=== PATIENT | male | born 1985 | race American Indian/Alaskan Native ===

== ENCOUNTER 2017-01-18 08:50 | Emergency (ER) | payer SELFPAY ==
[2017-01-18 09:01] VITALS: BP 139/98
--- NOTE | 2017-01-18 11:24 | XRay Report ---
X-RAY RIGHT FOOT THREE VIEWS: 01/18/17 09:04:00 CLINICAL: Pain. FINDINGS: Moderate soft tissue swelling of the midfoot. No soft tissue air or foreign body. The ankle joint and bones of the hindfoot are grossly abnormal on the lateral view. No fracture line is identified. IMPRESSION: Nonspecific soft tissue swelling. Grossly abnormal ankle joint and hindfoot. Consider ankle x-rays for further evaluation.
--- NOTE | 2017-01-18 11:34 | Emergency Department Report ---
ED Lower Extremity HPI - General Chief Complaint: Extremity Injury, Lower Stated Complaint: RIGHT FOOT PAIN Time Seen by Provider: 01/18/17 11:14 Source: patient Mode of arrival: Ambulatory Limitations: No Limitations - History of Present Illness -: Sudden Injury: Foot: Right Place: home Severity: moderate Improves With: nothing Worsens With: weight bearing Treatments Prior to Arrival: other (NO TRAUMA KNOWN. A R FOOT PAIN. WORSE OVER NIGHT) - Related Data Previous Rx's Medication Instructions Recorded Last Taken Type Colchicine [Colcrys] 0.6 mg PO DAILY #10 tablet 01/18/17 Unknown Rx predniSONE [Deltasone] 20 mg PO DAILY #5 tablet 01/18/17 Unknown Rx traMADol [Ultram] 50 mg PO Q6HR PRN #12 tablet 01/18/17 Unknown Rx Allergies Allergy/AdvReac Type Severity Reaction Status Date / Time No Known Allergies Allergy Unverified 01/18/17 08:58 ED Review of Systems ROS: Stated complaint: RIGHT FOOT PAIN Other details as noted in HPI Comment: Unobtainable due to pts medical conditions Constitutional: no symptoms reported, see HPI. denies: chills Eyes: as per HPI. denies: eye pain ENT: as per HPI. denies: ear pain, throat pain Respiratory: no symptoms reported, see HPI. denies: cough, orthopnea Cardiovascular: as per HPI. denies: chest pain, palpitations, dyspnea on exertion, orthopnea Endocrine: no symptoms reported, see HPI. denies: excessive sweating, flushing , intolerance to cold, intolerance to heat Gastrointestinal: as per HPI. denies: abdominal pain, nausea, vomiting Genitourinary: as per HPI. denies: urgency, dysuria Musculoskeletal: as per HPI, other (R FOOT PAIN R LATERAL FOOT) Skin: as per HPI. denies: rash, lesions Neurological: as per HPI. denies: headache, weakness Psychiatric: as per HPI. denies: anxiety, depression Hematological/Lymphatic: as per HPI. denies: easy bleeding ED Past Medical Hx - Past Medical History Previous Medical History?: No - Surgical History Past Surgical History?: No - Social History Smoking Status: Never Smoker Substance Use Type: None - Medications Home Medications: Home Medications Medication Instructions Recorded Confirmed Last Taken Type Colchicine [Colcrys] 0.6 mg PO DAILY #10 tablet 01/18/17 Unknown Rx predniSONE [Deltasone] 20 mg PO DAILY #5 tablet 01/18/17 Unknown Rx traMADol [Ultram] 50 mg PO Q6HR PRN #12 tablet 01/18/17 Unknown Rx ED Physical Exam - General Limitations: No Limitations General appearance: alert - Head Head exam: Present: atraumatic - Eye Eye exam: Present: PERRL - ENT ENT exam: Present: mucous membranes moist - Neck Neck exam: Present: normal inspection - Respiratory Respiratory exam: Present: normal lung sounds bilaterally - Cardiovascular Cardiovascular Exam: Present: regular rate - GI/Abdominal GI/Abdominal exam: Present: soft - Rectal Rectal exam: Present: deferred - Extremities Exam Extremities exam: Present: normal inspection, full ROM, tenderness (R FOOT) - Back Exam Back exam: Present: normal inspection, full ROM - Neurological Exam Neurological exam: Present: alert, oriented X3, CN II-XII intact, normal gait - Psychiatric Psychiatric exam: Present: normal affect, normal mood - Skin Skin exam: Present: warm, dry, intact ED Course Vital Signs 01/18/17 08:58 Temperature 98.1 F Pulse Rate 73 Respiratory 20 Rate Blood Pressure 139/98 O2 Sat by Pulse 98 Oximetry - Reevaluation(s) Reevaluation #1: 01/18/17 12:17 TO ER W R FOOT PAIN- LATERAL FOOT NO TRAUMA NO MED HISTORY XRAY NEG LABS NOTED MEDICATED PT EDUCATED ON GOUT ED Lower Extremity MDM - Lab Data Result diagrams: 01/18/17 11:28 01/18/17 11:28 - Radiology Data Radiology results: report reviewed, image reviewed - Medical Decision Making SEE NOTE Critical care attestation.: If time is entered above; I have spent that time in minutes in the direct care of this critically ill patient, excluding procedure time. ED Disposition Clinical Impression: Gout Disposition: DC-01 TO HOME OR SELFCARE Is pt being admited?: No Does the pt Need Aspirin: No Condition: Stable Instructions: Acute Gouty Arthritis (ED) Additional Instructions: MODIFY DIET INSTRUCTED GOUT WILL RECUR WE ARE TREATING ACUTE ATTACK BUT YOU WILL NEED FOLLOW UP Referrals: PRIMARY CARE,MD [Primary Care Provider] - 3-5 Days BRANDO RICHMOND MD [Staff Physician] - 3-5 Days Time of Disposition: 12:16
[2017-01-18 11:51] LABS: Basophils % (Auto) 0.8 % (0.0-1.8); Eosinophils % (Auto) 0.6 % (0.0-4.3); Hematocrit 45.7 % (35.5-45.6); Hemoglobin 14.3 gm/dl (11.8-15.2); Mean Corpuscular HGB Conc 31 % (32-34); Mean Corpuscular Volume 82 fl (84-94); Platelet Count 177 K/mm3 (140-440); Red Blood Count 5.56 M/mm3 (3.65-5.03); Red Cell Distribution Width 14.6 % (13.2-15.2); White Blood Count 6.3 K/mm3 (4.5-11.0)
[2017-01-18 11:57] LABS: Mean Corpuscular Hemoglobin 26 pg (28-32)
[2017-01-18 11:59] LABS: Alanine Aminotransferase 49 units/L (7-56); Albumin 4.3 g/dL (3.9-5); Albumin/Globulin Ratio 1.2 %; Alkaline Phosphatase 51 units/L (35-129); Anion Gap 13 mmol/L; BUN/Creatinine Ratio 10; Blood Urea Nitrogen 8 mg/dL (9-20); Calcium 9.3 mg/dL (8.4-10.2); Carbon Dioxide 30 mmol/L (22-30); Chloride 100.8 mmol/L (98-107); Glucose 97 mg/dL (75-100); Potassium 4.2 mmol/L (3.6-5.0); Sodium 140 mmol/L (137-145); Total Protein 7.8 g/dL (6.3-8.2); Uric Acid 8.9 mg/dL (3.5-7.6)
[2017-01-18] MEDS ORDERED: DECADRON IM ONE (12:13)
[2017-01-18] MEDS ORDERED: NORCO 5/325 PO ONE (12:13)
[2017-01-18] MEDS ORDERED: COLCRYS PO ONE (12:30)
== END 2017-01-18 12:31 | disposition home or self-care (01) ==
LOC: ED 08:50
DX: M10.9 Gout, unspecified (principal)
CPT/HCPCS: 36415; 73630; 80053; 84550; 85025; 96372; 99284; J1100

== ENCOUNTER → 2017-07-19 04:01 | Emergency (ER) | payer SELFPAY | END | disposition left against medical advice (07) | LOC: ED 04:01 | DX: J02.9 Acute pharyngitis, unspecified (principal); Z53.21 Procedure and treatment not carried out due to patient leaving prior to being seen by health care provider ==

== ENCOUNTER 2017-07-24 01:01 | Emergency (ER) | payer SELFPAY ==
[2017-07-24 02:20] VITALS: BP 138/85
[2017-07-24 02:36] LABS: Basophils # (Auto) 0.1 K/mm3 (0.0-0.1); Basophils % (Auto) 0.6 % (0.0-1.8); Eosinophils # (Auto) 0.1 K/mm3 (0.0-0.4); Eosinophils % (Auto) 0.8 % (0.0-4.3); Hematocrit 44.4 % (35.5-45.6); Hemoglobin 14.7 gm/dl (11.8-15.2); Lymphocytes # (Auto) 3.5 K/mm3 (1.2-5.4); Lymphocytes % (Auto) 36.7 % (13.4-35.0); Mean Corpuscular HGB Conc 33 % (32-34); Mean Corpuscular Hemoglobin 26 pg (28-32); Mean Corpuscular Volume 80 fl (84-94); Monocytes # (Auto) 0.7 K/mm3 (0.0-0.8); Monocytes % (Auto) 6.9 % (0.0-7.3); Platelet Count 197 K/mm3 (140-440); Red Blood Count 5.56 M/mm3 (3.65-5.03); Red Cell Distribution Width 14.6 % (13.2-15.2)
[2017-07-24 02:48] LABS: Alanine Aminotransferase 28 units/L (7-56); Albumin 4.2 g/dL (3.9-5); BUN/Creatinine Ratio 10; Blood Urea Nitrogen 9 mg/dL (9-20); Calcium 8.8 mg/dL (8.4-10.2); Hemolysis Index 20
== END 2017-07-24 02:45 | disposition left against medical advice (07) ==
LOC: ED 01:01
DX: R07.0 Pain in throat (principal); Z53.21 Procedure and treatment not carried out due to patient leaving prior to being seen by health care provider
CPT/HCPCS: 36415; 80053; 85025; 87116; 87430

== ENCOUNTER 2018-01-13 12:31 | Emergency (ER) | payer SELFPAY ==
[2018-01-13] MEDS ORDERED: TORADOL IM ONE (14:18)
[2018-01-13] MEDS ORDERED: CATAPRES PO ONE (14:18)
--- NOTE | 2018-01-13 14:35 | Emergency Department Report ---
ED General Adult HPI - General Chief complaint: Headache Stated complaint: HEADACHE/DIZZY Time Seen by Provider: 01/13/18 14:09 Source: patient Mode of arrival: Ambulatory Limitations: No Limitations - History of Present Illness Initial comments: This 32-year-old [place] male who has been having off-and-on headaches for the past 3 months. Patient states that some days or much worse than others. . last 2 days have been particularly bad. Patient denies any photophobia and nausea vomiting cough or congestion or neck stiffness. Patient has not seen a physician in many years. Of note patient's blood pressure was elevated today and the patient states he is very noncompliant with a healthy diet. Patient also has gained about 60 pounds in the last 2 years. Patient describes the headache as aching throbbing sensation behind the eyes. - Related Data Previous Rx's Medication Instructions Recorded Last Taken Type Colchicine [Colcrys] 0.6 mg PO DAILY #10 tablet 01/18/17 Unknown Rx predniSONE [Deltasone] 20 mg PO DAILY #5 tablet 01/18/17 Unknown Rx traMADol [Ultram] 50 mg PO Q6HR PRN #12 tablet 01/18/17 Unknown Rx Amlodipine Besylate [Norvasc] 5 mg PO DAILY #30 tablet 01/13/18 Unknown Rx Ibuprofen [Motrin] 800 mg PO Q8HR PRN #14 tablet 01/13/18 Unknown Rx traMADol [Ultram] 50 mg PO Q6HR PRN #10 tablet 01/13/18 Unknown Rx Allergies Allergy/AdvReac Type Severity Reaction Status Date / Time No Known Allergies Allergy Unverified 01/18/17 08:58 ED Review of Systems ROS: Stated complaint: HEADACHE/DIZZY Other details as noted in HPI Comment: All other systems reviewed and negative ED Past Medical Hx - Past Medical History Previous Medical History?: No - Surgical History Past Surgical History?: No - Social History Smoking Status: Never Smoker Substance Use Type: None - Medications Home Medications: Home Medications Medication Instructions Recorded Confirmed Last Taken Type Colchicine [Colcrys] 0.6 mg PO DAILY #10 tablet 01/18/17 Unknown Rx predniSONE [Deltasone] 20 mg PO DAILY #5 tablet 01/18/17 Unknown Rx traMADol [Ultram] 50 mg PO Q6HR PRN #12 tablet 01/18/17 Unknown Rx Amlodipine Besylate [Norvasc] 5 mg PO DAILY #30 tablet 01/13/18 Unknown Rx Ibuprofen [Motrin] 800 mg PO Q8HR PRN #14 tablet 01/13/18 Unknown Rx traMADol [Ultram] 50 mg PO Q6HR PRN #10 tablet 01/13/18 Unknown Rx ED Physical Exam - General Limitations: No Limitations General appearance: alert, in no apparent distress - Head Head exam: Present: atraumatic, normocephalic - Eye Eye exam: Present: normal appearance, PERRL, EOMI - ENT ENT exam: Present: mucous membranes moist - Neck Neck exam: Present: normal inspection - Respiratory Respiratory exam: Present: normal lung sounds bilaterally. Absent: respiratory distress, wheezes, rales, rhonchi - Cardiovascular Cardiovascular Exam: Present: regular rate, normal rhythm, normal heart sounds. Absent: systolic murmur, diastolic murmur, rubs, gallop - GI/Abdominal GI/Abdominal exam: Present: soft, normal bowel sounds. Absent: distended, tenderness, guarding, rebound - Rectal Rectal exam: Present: deferred - Extremities Exam Extremities exam: Present: normal inspection - Back Exam Back exam: Present: normal inspection - Neurological Exam Neurological exam: Present: alert, oriented X3 - Psychiatric Psychiatric exam: Present: normal affect, normal mood - Skin Skin exam: Present: warm, dry, intact, normal color. Absent: rash ED Course Vital Signs 01/13/18 12:41 Temperature 97 F L Pulse Rate 93 H Respiratory 18 Rate Blood Pressure 156/99 O2 Sat by Pulse 97 Oximetry ED Medical Decision Making - EKG Data -: EKG Interpreted by Me EKG shows normal: sinus rhythm, axis, intervals, QRS complexes, ST-T waves Rate: normal - EKG Data Interpretation: normal EKG - Medical Decision Making Did certified credit counselor the patient regarding his diet and normal blood pressure readings. Patient will be started on Norvasc 5 mg and be discharged home. Critical care attestation.: If time is entered above; I have spent that time in minutes in the direct care of this critically ill patient, excluding procedure time. ED Disposition Clinical Impression: Hypertensive urgency Headache Qualifiers: Headache type: tension-type Headache chronicity pattern: acute headache Intractability: not intractable Qualified Code(s): G44.209 - Tension-type headache, unspecified, not intractable Disposition: DC-01 TO HOME OR SELFCARE Is pt being admited?: No Does the pt Need Aspirin: No Condition: Stable Instructions: Hypertension (ED) Referrals: DIEGO SMITH MD [Staff Physician] - 3-5 Days Time of Disposition: 14:35
[2018-01-13 15:05] VITALS: BP 122/77
== END 2018-01-13 15:04 | disposition home or self-care (01) ==
LOC: ED 12:31
DX: I16.0 Hypertensive urgency (principal); G44.209 Tension-type headache, unspecified, not intractable
CPT/HCPCS: 93005; 93010; 96372; 99282; J1885

== ENCOUNTER 2018-10-04 04:37 | Emergency (ER) | payer OTHER ==
[2018-10-04 05:20] VITALS: BP 141/90
--- NOTE | 2018-10-04 06:51 | Ultrasound Report ---
PROCEDURE: US TESTICULAR DOPPLER COMP TECHNIQUE: Testicular ultrasound utilizing grayscale, color and spectral Doppler technique HISTORY: Right testicle pain COMPARISONS: None FINDINGS: Grayscale, color and spectral Doppler ultrasound evaluation of the testicles The right testicle measures 5.1 x 2.8 x 3.2 cm and demonstrates normal echotexture and color and spec tral Doppler evaluation. The epididymis is within normal limits. No intra or extra testicular mass. The left testicle measures 5.2 x 2.4 x 3.3 cm and demonstrates normal echo texture and color and spec tral Doppler evaluation. The epididymis is within normal limits. No intra or extra testicular mass. Small bilateral hydrocele. No varicocele visualized. IMPRESSION: Unremarkable testicular ultrasound. This document is electronically signed by Dhiraj Tesfaye MD., October 04 2018 06:49:44 AM ET
--- NOTE | 2018-10-04 06:54 | Cat Scan Report ---
PROCEDURE: CT ABDOMEN PELVIS WO CON TECHNIQUE: Noncontrast CT of the abdomen and pelvis HISTORY: right flank pain COMPARISONS: Non- FINDINGS: Imaged intrathoracic contents are unremarkable. Kidneys are normal in size, axis and position. Very mild right hydroureteronephrosis without obstruct ing stone identified. No stones seen in the right or left collecting system or within the urinary faiza dder. Pelvic phleboliths are noted. No free fluid in the pelvis. Hepatic steatosis with sparing adjacent to the gallbladder. The liver, gallbladder, pancreas, spleen, and adrenal glands otherwise demonstrate an unremarkable noncontrast appearance. Hollow enteric organs are normal in course and caliber. Appendix is normal. No intra-abdominal free a ir/fluid or lymphadenopathy. Aorta is normal in course and caliber. Superficial soft tissues are unremarkable. No acute or aggressive appearing skeletal findings. IMPRESSION: Mild right hydroureteronephrosis may be due to recently passed stone or infection. No current obstruc tive uropathy identified. Hepatic steatosis. This document is electronically signed by Dhiraj Tesfaye MD., October 04 2018 06:53:07 AM ET
[2018-10-04 07:18] LABS: Basophils # (Auto) 0.2 K/mm3 (0.0-0.1); Basophils % (Auto) 2.8 % (0.0-1.8); Eosinophils # (Auto) 0.1 K/mm3 (0.0-0.4); Eosinophils % (Auto) 0.7 % (0.0-4.3); Hematocrit 41.9 % (35.5-45.6); Hemoglobin 13.6 gm/dl (11.8-15.2); Lymphocytes # (Auto) 1.8 K/mm3 (1.2-5.4); Lymphocytes % (Auto) 24.8 % (13.4-35.0); Mean Corpuscular HGB Conc 33 % (32-34); Mean Corpuscular Volume 81 fl (84-94); Monocytes # (Auto) 0.6 K/mm3 (0.0-0.8); Monocytes % (Auto) 7.9 % (0.0-7.3); Platelet Count 173 K/mm3 (140-440); Red Blood Count 5.16 M/mm3 (3.65-5.03)
[2018-10-04 07:29] LABS: Mucus,Urine FEW /HPF
[2018-10-04 07:34] LABS: Bilirubin,Urine NEG (Negative); Blood,Urine LG (Negative); Protein,Urine <15 mg/dL mg/dL (Negative); Urobilinogen,Urine < 2.0 mg/dL (<2.0)
[2018-10-04 07:35] LABS: Color,Urine YELLOW (Yellow); RBC,Urine > 182.0 /HPF (0.0-6.0)
[2018-10-04 07:38] LABS: Alanine Aminotransferase 26 units/L (7-56); Albumin 4.1 g/dL (3.9-5); BUN/Creatinine Ratio 11; Blood Urea Nitrogen 11 mg/dL (9-20); Calcium 8.9 mg/dL (8.4-10.2); Hemolysis Index 18
--- NOTE | 2018-10-04 08:07 | Emergency Department Report ---
ED Abdominal Pain HPI - General Chief Complaint: Abdominal Pain Stated Complaint: BACK/SIDE/TESTICLE PAIN Source: patient Mode of arrival: Ambulatory Limitations: No Limitations - History of Present Illness Initial Comments: This is a 32-year-old male who presents to the emergency room right flank pain radiating to right testicle that started last night. Patient currently reports pain is 7 out of 10 on pain scale radiating from right flank to right testicle. States he gets Tylenol 100 to arrival with minimal improvement of symptoms. He denies chills, urinary frequency, urgency, dysuria, penile discharge, testicular enlargement, nausea, vomiting, or diarrhea. MD Complaint: flank pain (right) -: Last night Location: R flank Radiation: other (right groin) Migration to: no migration Severity: moderate Severity scale (0 -10): 7 Quality: aching, sharp Consistency: intermittent Improves With: nothing Worsens With: nothing Associated Symptoms: denies other symptoms Treatments Prior to Arrival: NSAIDs - Related Data Previous Rx's Medication Instructions Recorded Last Taken Type Colchicine [Colcrys] 0.6 mg PO DAILY #10 tablet 01/18/17 Unknown Rx predniSONE [Deltasone] 20 mg PO DAILY #5 tablet 01/18/17 Unknown Rx traMADol [Ultram] 50 mg PO Q6HR PRN #12 tablet 01/18/17 Unknown Rx Amlodipine Besylate [Norvasc] 2.5 mg PO DAILY #30 tablet 01/13/18 Unknown Rx Ibuprofen [Motrin] 800 mg PO Q8HR PRN #14 tablet 01/13/18 Unknown Rx traMADol [Ultram] 50 mg PO Q6HR PRN #10 tablet 01/13/18 Unknown Rx Amoxicillin/Potassium Clav 1 each PO Q12H #20 tablet 08/13/18 Unknown Rx [Augmentin 875-125 Tablet] Benzonatate [Tessalon Perles] 100 mg PO Q8HR #30 capsule 08/13/18 Unknown Rx Cetirizine HCl [ZyrTEC] 10 mg PO DAILY #30 capsule 08/13/18 Unknown Rx Ibuprofen [Motrin] 600 mg PO Q8H PRN #20 tablet 08/13/18 Unknown Rx Ondansetron [Zofran Odt] 4 mg PO Q6HR #15 tab.rapdis 08/13/18 Unknown Rx methylPREDNISolone [Medrol] 4 mg PO DAILY #21 tab.ds.pk 08/13/18 Unknown Rx Ketorolac [Toradol] 10 mg PO Q6H PRN #8 tablet 10/04/18 Unknown Rx Ondansetron [Zofran Odt] 4 mg PO Q8HR PRN #15 tab.rapdis 10/04/18 Unknown Rx traMADol [Ultram 50 MG tab] 50 mg PO Q6HR PRN #8 tablet 10/04/18 Unknown Rx Allergies Allergy/AdvReac Type Severity Reaction Status Date / Time No Known Allergies Allergy Unverified 01/18/17 08:58 ED Review of Systems ROS: Stated complaint: BACK/SIDE/TESTICLE PAIN Other details as noted in HPI Constitutional: denies: chills, fever Respiratory: denies: cough, shortness of breath, wheezing Cardiovascular: denies: chest pain, palpitations Gastrointestinal: abdominal pain. denies: nausea, diarrhea Genitourinary: denies: urgency, dysuria Musculoskeletal: back pain (right flank). denies: joint swelling, arthralgia Skin: denies: rash, lesions Neurological: denies: headache, weakness, paresthesias Psychiatric: denies: anxiety, depression ED Past Medical Hx - Past Medical History Previous Medical History?: Yes - Surgical History Past Surgical History?: No - Social History Smoking Status: Never Smoker Substance Use Type: None - Medications Home Medications: Home Medications Medication Instructions Recorded Confirmed Last Taken Type Colchicine [Colcrys] 0.6 mg PO DAILY #10 tablet 01/18/17 Unknown Rx predniSONE [Deltasone] 20 mg PO DAILY #5 tablet 01/18/17 Unknown Rx traMADol [Ultram] 50 mg PO Q6HR PRN #12 tablet 01/18/17 Unknown Rx Amlodipine Besylate [Norvasc] 2.5 mg PO DAILY #30 tablet 01/13/18 Unknown Rx Ibuprofen [Motrin] 800 mg PO Q8HR PRN #14 tablet 01/13/18 Unknown Rx traMADol [Ultram] 50 mg PO Q6HR PRN #10 tablet 01/13/18 Unknown Rx Amoxicillin/Potassium Clav 1 each PO Q12H #20 tablet 08/13/18 Unknown Rx [Augmentin 875-125 Tablet] Benzonatate [Tessalon Perles] 100 mg PO Q8HR #30 capsule 08/13/18 Unknown Rx Cetirizine HCl [ZyrTEC] 10 mg PO DAILY #30 capsule 08/13/18 Unknown Rx Ibuprofen [Motrin] 600 mg PO Q8H PRN #20 tablet 08/13/18 Unknown Rx Ondansetron [Zofran Odt] 4 mg PO Q6HR #15 tab.rapdis 08/13/18 Unknown Rx methylPREDNISolone [Medrol] 4 mg PO DAILY #21 tab.ds.pk 08/13/18 Unknown Rx Ketorolac [Toradol] 10 mg PO Q6H PRN #8 tablet 10/04/18 Unknown Rx Ondansetron [Zofran Odt] 4 mg PO Q8HR PRN #15 tab.rapdis 10/04/18 Unknown Rx traMADol [Ultram 50 MG tab] 50 mg PO Q6HR PRN #8 tablet 10/04/18 Unknown Rx ED Physical Exam - General Limitations: No Limitations General appearance: alert, in no apparent distress, obese (morbidly) - Respiratory Respiratory exam: Present: normal lung sounds bilaterally. Absent: respiratory distress - Cardiovascular Cardiovascular Exam: Present: regular rate, normal rhythm. Absent: systolic murmur, diastolic murmur, rubs, gallop - GI/Abdominal GI/Abdominal exam: Present: soft, normal bowel sounds, other (obese abdomen). Absent: distended, tenderness, guarding, rebound, rigid - Back Exam Back exam: Present: CVA tenderness (R). Absent: CVA tenderness (L), muscle spasm, paraspinal tenderness, vertebral tenderness - Neurological Exam Neurological exam: Present: alert, oriented X3, normal gait - Psychiatric Psychiatric exam: Present: normal affect, normal mood - Skin Skin exam: Present: warm, dry, intact, normal color. Absent: rash ED Course Vital Signs 10/04/18 05:13 Temperature 98.2 F Pulse Rate 80 Respiratory 18 Rate Blood Pressure 141/90 O2 Sat by Pulse 100 Oximetry ED Medical Decision Making - Lab Data Result diagrams: 10/04/18 06:51 10/04/18 06:51 Lab Results 10/04/18 10/04/18 10/04/18 Range/Units 06:38 06:51 06:51 WBC 7.3 (4.5-11.0) K/mm3 RBC 5.16 H (3.65-5.03) M/mm3 Hgb 13.6 (11.8-15.2) gm/dl Hct 41.9 (35.5-45.6) % MCV 81 L (84-94) fl MCH 27 L (28-32) pg MCHC 33 (32-34) % RDW 15.0 (13.2-15.2) % Plt Count 173 (140-440) K/mm3 Lymph % (Auto) 24.8 (13.4-35.0) % Morton % (Auto) 7.9 H (0.0-7.3) % Eos % (Auto) 0.7 (0.0-4.3) % Baso % (Auto) 2.8 H (0.0-1.8) % Lymph # 1.8 (1.2-5.4) K/mm3 Morton # 0.6 (0.0-0.8) K/mm3 Eos # 0.1 (0.0-0.4) K/mm3 Baso # 0.2 H (0.0-0.1) K/mm3 Seg Neutrophils % 63.8 (40.0-70.0) % Seg Neutrophils # 4.7 (1.8-7.7) K/mm3 Sodium 139 (137-145) mmol/L Potassium 4.2 (3.6-5.0) mmol/L Chloride 101.3 (98-107) mmol/L Carbon Dioxide 26 (22-30) mmol/L Anion Gap 16 mmol/L BUN 11 (9-20) mg/dL Creatinine 1.0 (0.8-1.5) mg/dL Estimated GFR > 60 ml/min BUN/Creatinine Ratio 11 % Glucose 122 H (75-100) mg/dL Calcium 8.9 (8.4-10.2) mg/dL Total Bilirubin 0.30 (0.1-1.2) mg/dL AST 22 (5-40) units/L ALT 26 (7-56) units/L Alkaline Phosphatase 50 (35-129) units/L Total Protein 7.5 (6.3-8.2) g/dL Albumin 4.1 (3.9-5) g/dL Albumin/Globulin Ratio 1.2 % Urine Color Yellow (Yellow) Urine Turbidity Clear (Clear) Urine pH 5.0 (5.0-7.0) Ur Specific Homer 1.017 (1.003-1.030) Urine Protein <15 mg/dl (Negative) mg/dL Urine Glucose (UA) Neg (Negative) mg/dL Urine Ketones Neg (Negative) mg/dL Urine Blood Lg (Negative) Urine Nitrite Neg (Negative) Urine Bilirubin Neg (Negative) Urine Urobilinogen < 2.0 (<2.0) mg/dL Ur Leukocyte Esterase Neg (Negative) Urine WBC (Auto) 1.0 (0.0-6.0) /HPF Urine RBC (Auto) > 182.0 (0.0-6.0) /HPF Urine Mucus Few /HPF - Radiology Data Radiology results: report reviewed PROCEDURE: US TESTICULAR DOPPLER COMP TECHNIQUE: Testicular ultrasound utilizing grayscale, color and spectral Doppler technique HISTORY: Right testicle pain COMPARISONS: None FINDINGS: Grayscale, color and spectral Doppler ultrasound evaluation of the testicles The right testicle measures 5.1 x 2.8 x 3.2 cm and demonstrates normal echotexture and color and spectral Doppler evaluation. The epididymis is within normal limits. No intra or extra testicular mass. The left testicle measures 5.2 x 2.4 x 3.3 cm and demonstrates normal echo texture and color and spectral Doppler evaluation. The epididymis is within normal limits. No intra or extra testicular mass. Small bilateral hydrocele. No varicocele visualized. IMPRESSION: Unremarkable testicular ultrasound. PROCEDURE: CT ABDOMEN PELVIS WO CON TECHNIQUE: Noncontrast CT of the abdomen and pelvis HISTORY: right flank pain COMPARISONS: Non- FINDINGS: Imaged intrathoracic contents are unremarkable. Kidneys are normal in size, axis and position. Very mild right hydroureteronephrosis without obstructing stone identified. No stones seen in the right or left collecting system or within the urinary bladder. Pelvic phleboliths are noted. No free fluid in the pelvis. Hepatic steatosis with sparing adjacent to the gallbladder. The liver, gallbladder, pancreas, spleen, and adrenal glands otherwise demonstrate an unremarkable noncontrast appearance. Hollow enteric organs are normal in course and caliber. Appendix is normal. No intra-abdominal free air/fluid or lymphadenopathy. Aorta is normal in course and caliber. Superficial soft tissues are unremarkable. No acute or aggressive appearing skeletal findings. IMPRESSION: Mild right hydroureteronephrosis may be due to recently passed stone or infection. No current obstructive uropathy identified. Hepatic steatosis. - Medical Decision Making Patient is stable and was examined by this provider. Vitals stable. Obtained CMP, CBC, UA, testicular ultrasound, and CT of abdomen. There is large amount of blood on urinalysis. All other labs unremarkable. Hepatic steatosis. Unremarkable testicular ultrasound. Mild right hydroureteronephrosis may be due to recently passed stone or infection. No current obstructive uropathy identified. Given analgesics while in the ER. Start tramadol, toradol, and Zofran for comfort. Discussed plan with patient and agreed to plan. Discharged home in stable condition. Follow up with PCP in 2-3 days. Critical care attestation.: If time is entered above; I have spent that time in minutes in the direct care of this critically ill patient, excluding procedure time. ED Disposition Clinical Impression: Acute right flank pain, Right nephrolithiasis Disposition: TO HOME OR SELFCARE Is pt being admited?: No Does the pt Need Aspirin: No Condition: Stable Instructions: Renal Colic (ED), How to Strain Your Urine (ED) Additional Instructions: Increase fluid intake to 2 L per day. Change diet to low-protein and a low-sodium diet to prevent reoccurrence. Strain urine to observe for passing stones. Follow-up with primary care doctor in 2-3 days. Follow-up with urology in 1-2 weeks for management of kidney stones. Prescriptions: Ketorolac [Toradol] 10 mg PO Q6H PRN #8 tablet PRN Reason: Pain traMADol [Ultram 50 MG tab] 50 mg PO Q6HR PRN #8 tablet PRN Reason: Pain Ondansetron [Zofran Odt] 4 mg PO Q8HR PRN #15 tab.rapdis PRN Reason: Nausea And Vomiting Referrals: [facility] [Primary Care Provider] - 3-5 Days [facility] [Provider Group] - 3-[address] [facility] [Outside] - 3-5 Days HANNAH LANGLEY MD [Staff Physician] - 3-5 Days Forms: Work/School Release Form(ED) Time of Disposition: 08:13
== END 2018-10-04 08:24 | disposition home or self-care (01) ==
LOC: ED 04:37
DX: N20.0 Calculus of kidney (principal); N13.30 Unspecified hydronephrosis; Z79.899 Other long term (current) drug therapy
CPT/HCPCS: 36415; 74176; 80053; 81001; 85025; 93975

== ENCOUNTER 2020-08-17 21:41 | Inpatient (IN) | payer BC, OTHER ==
[2020-08-17 23:24] LABS: Basophils # (Auto) 0.1 K/mm3 (0.0-0.1); Basophils % (Auto) 0.7 % (0.0-1.8); Eosinophils # (Auto) 0.1 K/mm3 (0.0-0.4); Eosinophils % (Auto) 1.3 % (0.0-4.3); Hemoglobin 14.3 gm/dl (11.8-15.2); Lymphocytes # (Auto) 2.3 K/mm3 (1.2-5.4); Lymphocytes % (Auto) 23.1 % (13.4-35.0); Mean Corpuscular HGB Conc 32 % (32-34); Mean Corpuscular Volume 81 fl (84-94); Monocytes # (Auto) 0.9 K/mm3 (0.0-0.8); Monocytes % (Auto) 9.4 % (0.0-7.3); Red Blood Count 5.45 M/mm3 (3.65-5.03); Red Cell Distribution Width 15.7 % (13.2-15.2)
[2020-08-17 23:25] LABS: Platelet Count 186 K/mm3 (140-440)
[2020-08-17 23:31] LABS: BUN/Creatinine Ratio 9; Blood Urea Nitrogen 10 mg/dL (9-20); Calcium 9.5 mg/dL (8.4-10.2); Hemolysis Index 9
[2020-08-18] MEDS ORDERED: ONDANSETRON 4 MG/2 ML INJ IV ONE (03:57)
[2020-08-18] MEDS ORDERED: SODIUM CHLORIDE 0.9% 1000 ML 1,000 ML IV ONE (03:57)
[2020-08-18] MEDS ORDERED: HYDROmorphone 1 MG/1 ML INJ IV ONE (03:57)
--- NOTE | 2020-08-18 04:01 | Emergency Department Report ---
ED GI Bleed HPI - General Chief complaint: GI Bleed Stated complaint: NAUSEA;VOMITING;FATIQUE Time Seen by Provider: 08/18/20 03:57 Source: patient Mode of arrival: Ambulatory Limitations: No Limitations - History of Present Illness Initial comments: Patient is a 34-year-old male presents emergency room with complaints of abdominal pain, nausea, vomiting, blood-streaked emesis. Patient states that he has had nausea vomiting and abdominal pain for 4 days. Patient states and he started throwing up blood x1 day. Patient states it is not copious amounts of blood which is blood streaking in his vomitus. Patient states he had a gastric sleeve procedure 3 weeks ago in [place]. Patient states the pain and the symptoms are worsening. Patient states the blood streaks are becoming more frequent. Patient states the pain is severe. Patient states is a sharp pain. Patient states ambulating down. Patient denies recent travel. Patient denies recent international travel. Patient denies exposure to the novel coronavirus. Patient denies sick contacts. Patient denies fever and chills. Patient denies cough. Patient denies diarrhea. Patient denies coming in contact with anybody with symptoms of the novel coronavirus. MD complaint: blood streaked emesis -: Sudden Location: epigastric Radiation: none Severity scale (0 -10): 10 Quality: sharp Consistency: constant Improves with: rest Worsens with: eating, vomiting, movement Context: other Associated Symptoms: denies other symptoms, abdominal pain, nausea, vomiting, loss of appetite. denies: epistaxis, fever/chills, headaches, malaise, easy bruising, rash, other bleeding, shortness of breath, syncope, weakness - Related Data Previous Rx's Medication Instructions Recorded Last Taken Type Colchicine [Colcrys] 0.6 mg PO DAILY #10 tablet 01/18/17 Unknown Rx predniSONE [Deltasone] 20 mg PO DAILY #5 tablet 01/18/17 Unknown Rx traMADoL [Ultram] 50 mg PO Q6HR PRN #12 tablet 01/18/17 Unknown Rx Amlodipine Besylate [Norvasc] 2.5 mg PO DAILY #30 tablet 01/13/18 Unknown Rx Ibuprofen [Motrin] 800 mg PO Q8HR PRN #14 tablet 01/13/18 Unknown Rx traMADoL [Ultram] 50 mg PO Q6HR PRN #10 tablet 01/13/18 Unknown Rx Amoxicillin/Potassium Clav 1 each PO Q12H #20 tablet 08/13/18 Unknown Rx [Augmentin 875-125 Tablet] Benzonatate [Tessalon Perles] 100 mg PO Q8HR #30 capsule 08/13/18 Unknown Rx Cetirizine HCl [ZyrTEC] 10 mg PO DAILY #30 capsule 08/13/18 Unknown Rx Ibuprofen [Motrin] 600 mg PO Q8H PRN #20 tablet 08/13/18 Unknown Rx Ondansetron [Zofran Odt] 4 mg PO Q6HR #15 tab.rapdis 08/13/18 Unknown Rx methylPREDNISolone [Medrol] 4 mg PO DAILY #21 tab.ds.pk 08/13/18 Unknown Rx Ketorolac [Toradol] 10 mg PO Q6H PRN #8 tablet 10/04/18 Unknown Rx Ondansetron [Zofran Odt] 4 mg PO Q8HR PRN #15 tab.rapdis 10/04/18 Unknown Rx traMADoL [Ultram 50 MG tab] 50 mg PO Q6HR PRN #8 tablet 10/04/18 Unknown Rx Allergies Allergy/AdvReac Type Severity Reaction Status Date / Time No Known Allergies Allergy Unverified 01/18/17 08:58 ED Review of Systems ROS: Stated complaint: NAUSEA;VOMITING;FATIQUE Other details as noted in HPI Constitutional: denies: chills, fever Eyes: denies: eye pain, eye discharge, vision change ENT: denies: ear pain, throat pain Respiratory: denies: cough, shortness of breath, wheezing Cardiovascular: denies: chest pain, palpitations Endocrine: no symptoms reported Gastrointestinal: as per HPI, abdominal pain, nausea, vomiting, hematemesis. denies: diarrhea Genitourinary: denies: urgency, dysuria Musculoskeletal: denies: back pain, joint swelling, arthralgia Skin: denies: rash, lesions Neurological: denies: headache, weakness, paresthesias Psychiatric: denies: anxiety, depression Hematological/Lymphatic: denies: easy bleeding, easy bruising ED Past Medical Hx - Past Medical History Previous Medical History?: No - Surgical History Past Surgical History?: Yes Additional Surgical History: Gastric sleeve - Family History Family history: no significant - Social History Smoking Status: Never Smoker Substance Use Type: None - Medications Home Medications: Home Medications Medication Instructions Recorded Confirmed Last Taken Type Colchicine [Colcrys] 0.6 mg PO DAILY #10 tablet 01/18/17 Unknown Rx predniSONE [Deltasone] 20 mg PO DAILY #5 tablet 01/18/17 Unknown Rx traMADoL [Ultram] 50 mg PO Q6HR PRN #12 tablet 01/18/17 Unknown Rx Amlodipine Besylate [Norvasc] 2.5 mg PO DAILY #30 tablet 01/13/18 Unknown Rx Ibuprofen [Motrin] 800 mg PO Q8HR PRN #14 tablet 01/13/18 Unknown Rx traMADoL [Ultram] 50 mg PO Q6HR PRN #10 tablet 01/13/18 Unknown Rx Amoxicillin/Potassium Clav 1 each PO Q12H #20 tablet 08/13/18 Unknown Rx [Augmentin 875-125 Tablet] Benzonatate [Tessalon Perles] 100 mg PO Q8HR #30 capsule 08/13/18 Unknown Rx Cetirizine HCl [ZyrTEC] 10 mg PO DAILY #30 capsule 08/13/18 Unknown Rx Ibuprofen [Motrin] 600 mg PO Q8H PRN #20 tablet 08/13/18 Unknown Rx Ondansetron [Zofran Odt] 4 mg PO Q6HR #15 tab.rapdis 08/13/18 Unknown Rx methylPREDNISolone [Medrol] 4 mg PO DAILY #21 tab.ds.pk 08/13/18 Unknown Rx Ketorolac [Toradol] 10 mg PO Q6H PRN #8 tablet 10/04/18 Unknown Rx Ondansetron [Zofran Odt] 4 mg PO Q8HR PRN #15 tab.rapdis 10/04/18 Unknown Rx traMADoL [Ultram 50 MG tab] 50 mg PO Q6HR PRN #8 tablet 10/04/18 Unknown Rx ED Physical Exam - General Limitations: No Limitations General appearance: alert, in no apparent distress - Head Head exam: Present: atraumatic, normocephalic - Eye Eye exam: Present: normal appearance - ENT ENT exam: Present: mucous membranes moist - Neck Neck exam: Present: normal inspection - Respiratory Respiratory exam: Present: normal lung sounds bilaterally. Absent: respiratory distress, wheezes, rales - Cardiovascular Cardiovascular Exam: Present: regular rate, normal rhythm. Absent: systolic murmur, diastolic murmur, rubs, gallop - GI/Abdominal GI/Abdominal exam: Present: soft, tenderness, normal bowel sounds. Absent: distended, guarding - Rectal Rectal exam: Present: deferred - Extremities Exam Extremities exam: Present: normal inspection - Back Exam Back exam: Present: normal inspection - Neurological Exam Neurological exam: Present: alert, oriented X3 - Psychiatric Psychiatric exam: Present: normal affect, normal mood - Skin Skin exam: Present: warm, dry, intact, normal color. Absent: rash ED Course Vital Signs 08/17/20 08/18/20 08/18/20 22:09 04:06 04:09 Temperature 98.9 F 98.2 F Pulse Rate 100 H 81 Respiratory 18 16 16 Rate Blood Pressure 123/94 Blood Pressure 122/73 [Left] O2 Sat by Pulse 96 100 Oximetry 08/18/20 08/18/20 08/18/20 04:36 05:39 05:45 Temperature Pulse Rate 87 76 Respiratory 16 16 18 Rate Blood Pressure 120/78 120/78 Blood Pressure [Left] O2 Sat by Pulse 97 97 Oximetry 08/18/20 06:01 Temperature Pulse Rate 71 Respiratory 18 Rate Blood Pressure 121/77 Blood Pressure [Left] O2 Sat by Pulse 97 Oximetry - Reevaluation(s) Reevaluation #1: Patient states feeling better. Patient given ice chips. 08/18/20 05:01 Reevaluation #2: I discussed all results with patient. I discussed plan of care with patient. Patient agrees with plan of care and admission. Patient to be admitted to the hospitalist service. 08/18/20 06:53 - Consultations Consultation #1: I discussed case with vascular surgery, Dr. Miller. Also wants patient on heparin drip and he will come see the patient. Dr. Miller also wants GI and surgery involved. 08/18/20 06:47 Consultation #2: GI and surgery consulted. 08/18/20 06:53 ED Medical Decision Making - Lab Data Result diagrams: 08/17/20 22:56 08/17/20 22:56 - Radiology Data Radiology results: report reviewed CT ABDOMEN AND PELVIS WITH CONTRAST INDICATION / CLINICAL INFORMATION: Unspecified abdominal pain, nausea with vomiting. History of gastric sleeve procedure. TECHNIQUE: Axial CT images were obtained through the abdomen and pelvis after 100 cc Omnipaque [address] scans at this location are performed using CT dose reduction for ALARA by means of automated exposure control. COMPARISON: CT abdomen and pelvis without contrast from 10/04/2018. FINDINGS: LOWER CHEST: No significant abnormality. LIVER: No significant abnormality. GALLBLADDER: No significant abnormality. BILE DUCTS: No significant abnormality. PANCREAS: No significant abnormality. SPLEEN: No significant abnormality. ADRENALS: No significant abnormality. RIGHT KIDNEY / URETER: No significant abnormality. LEFT KIDNEY / URETER: No significant abnormality. STOMACH / SMALL BOWEL: Changes from prior gastric sleeve surgery are noted along the stomach without acute abnormalities. No significant abnormality of the small bowel. COLON: No significant abnormality. APPENDIX: No significant abnormality. PERITONEUM: No free fluid. No free air. No fluid collection. Edema is seen al steve the mesenteric root with mesenteric venous congestion. LYMPH NODES: No significant adenopathy. AORTA / ARTERIES: No significant abnormality. IVC / VEINS: Acute nonocclusive thrombus is seen along the portal and superior mesenteric veins. No other significant abnormality. URINARY BLADDER: No significant abnormality. REPRODUCTIVE ORGANS: No significant abnormality. ADDITIONAL FINDINGS: None. SKELETAL SYSTEM: No significant abnormality. IMPRESSION: 1. 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 2. No other acute findings. - Medical Decision Making Patient is a 34-year-old male who presents emergency room with complaints of abdominal pain and nausea vomiting. Patient is well offered 3 days. Patient had some blood streaking in his emesis over the last 24 hours. Patient states not a gross amount of blood. Patient had a gastric sleeve surgery to 3 weeks ago and [facility] Patient back postoperatively. Patient had labs done which were essentially unremarkable. Patient given fluids, Dilaudid, Pepcid and Zofran. Patient's symptoms. Patient had a CT scan with IV contrast and was found to have a mesenteric venous thrombus. Vascular surgery was consulted. General surgery and GI were consulted. Patient admitted to the hospital service for further evaluation treatment. Critical care time documented due to the multiple reassessments, prolonged time at the bedside, interpretation of diagnostics and labs and discussion with consultants. - Differential Diagnosis Hematemesis, acid reflux, Julia-Wynne tear, abdominal pain, Critical Care Time: Yes Critical care time in (mins) excluding proc time.: 35 Critical care attestation.: If time is entered above; I have spent that time in minutes in the direct care of this critically ill patient, excluding procedure time. Critical Care Time: 35 minutes ED Disposition Clinical Impression: Mesenteric vein thrombosis Nausea & vomiting Qualifiers: Vomiting type: unspecified Vomiting Intractability: non-intractable Qualified Code(s): R11.2 - Nausea with vomiting, unspecified Hematemesis Qualifiers: Nausea presence: with nausea Qualified Code(s): K92.0 - Hematemesis Abdominal pain Qualifiers: Abdominal location: upper abdomen, unspecified Qualified Code(s): R10.10 - Upper abdominal pain, unspecified Disposition: DC-09 OP ADMIT IP TO THIS HOSP Is pt being admited?: Yes Does the pt Need Aspirin: No Condition: Critical Time of Disposition: 06:53
[2020-08-18] MEDS ORDERED: FAMOTIDINE 20 MG/2 ML INJ IV ONE ×2 (05:59→06:00)
--- NOTE | 2020-08-18 06:14 | Cat Scan Report ---
CT ABDOMEN AND PELVIS WITH CONTRAST INDICATION / CLINICAL INFORMATION: Unspecified abdominal pain, nausea with vomiting. History of gastric sleeve procedure. TECHNIQUE: Axial CT images were obtained through the abdomen and pelvis after 100 cc Omnipaque [address] scans at this location are performed using CT dose reduction for ALARA by means of automated exposure control. COMPARISON: CT abdomen and pelvis without contrast from 10/04/2018. FINDINGS: LOWER CHEST: No significant abnormality. LIVER: No significant abnormality. GALLBLADDER: No significant abnormality. BILE DUCTS: No significant abnormality. PANCREAS: No significant abnormality. SPLEEN: No significant abnormality. ADRENALS: No significant abnormality. RIGHT KIDNEY / URETER: No significant abnormality. LEFT KIDNEY / URETER: No significant abnormality. STOMACH / SMALL BOWEL: Changes from prior gastric sleeve surgery are noted along the stomach without acute abnormalities. No significant abnormality of the small bowel. COLON: No significant abnormality. APPENDIX: No significant abnormality. PERITONEUM: No free fluid. No free air. No fluid collection. Edema is seen along the mesenteric root with mesenteric venous congestion. LYMPH NODES: No significant adenopathy. AORTA / ARTERIES: No significant abnormality. IVC / VEINS: Acute nonocclusive thrombus is seen along the portal and superior mesenteric veins. No o ther significant abnormality. URINARY BLADDER: No significant abnormality. REPRODUCTIVE ORGANS: No significant abnormality. ADDITIONAL FINDINGS: None. SKELETAL SYSTEM: No significant abnormality. IMPRESSION: 1. 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 2. No other acute findings. Signer Name: Ketan Eaton MD Signed: 08/18/2020 6:10 AM Workstation Name: [id number]
[2020-08-18] MEDS ORDERED: HEPARIN 10,000 UNITS/10 ML VIAL IV ONE ×2 (06:44→09:00)
[2020-08-18 08:35] LABS: INR 1.14 (0.87-1.13); Partial Thromboplastin Time 28.2 Sec. (24.2-36.6)
[2020-08-18] MEDS: HEPARIN/ 0.45% NACL DRIP 25,000 UNIT/500 ML BAG IV SCH (08:57)
--- NOTE | 2020-08-18 09:30 | Consultation ---
History of Present Illness - Reason for Consult Consult date: 08/18/20 Mesenteric vein thrombus - History of Present Illness Patient with a history of gastric sleeve performed at an outside institution who presents approximately 2 to 3 weeks after his surgery at this institution complaining of a 2 to 4-day history of progressive mid epigastric pain and hematemesis. A CT scan of the abdomen pelvis was performed which demonstrates nonocclusive thrombus within the SMV and portal vein. Inflammatory stranding is present. Bowel is decompressed. The patient has midepigastric pain with mild tenderness to palpation. No other complaints at this time. Medications and Allergies Allergies Allergy/AdvReac Type Severity Reaction Status Date / Time No Known Allergies Allergy Unverified 01/18/17 08:58 Home Medications Medication Instructions Recorded Confirmed Last Taken Type Colchicine [Colcrys] 0.6 mg PO DAILY #10 tablet 01/18/17 Unknown Rx predniSONE [Deltasone] 20 mg PO DAILY #5 tablet 01/18/17 Unknown Rx traMADoL [Ultram] 50 mg PO Q6HR PRN #12 tablet 01/18/17 Unknown Rx Amlodipine Besylate [Norvasc] 2.5 mg PO DAILY #30 tablet 01/13/18 Unknown Rx Ibuprofen [Motrin] 800 mg PO Q8HR PRN #14 tablet 01/13/18 Unknown Rx traMADoL [Ultram] 50 mg PO Q6HR PRN #10 tablet 01/13/18 Unknown Rx Amoxicillin/Potassium Clav 1 each PO Q12H #20 tablet 08/13/18 Unknown Rx [Augmentin 875-125 Tablet] Benzonatate [Tessalon Perles] 100 mg PO Q8HR #30 capsule 08/13/18 Unknown Rx Cetirizine HCl [ZyrTEC] 10 mg PO DAILY #30 capsule 08/13/18 Unknown Rx Ibuprofen [Motrin] 600 mg PO Q8H PRN #20 tablet 08/13/18 Unknown Rx Ondansetron [Zofran Odt] 4 mg PO Q6HR #15 tab.rapdis 08/13/18 Unknown Rx methylPREDNISolone [Medrol] 4 mg PO DAILY #21 tab.ds.pk 08/13/18 Unknown Rx Ketorolac [Toradol] 10 mg PO Q6H PRN #8 tablet 10/04/18 Unknown Rx Ondansetron [Zofran Odt] 4 mg PO Q8HR PRN #15 tab.rapdis 10/04/18 Unknown Rx traMADoL [Ultram 50 MG tab] 50 mg PO Q6HR PRN #8 tablet 10/04/18 Unknown Rx Active Meds: Active Medications Heparin Sodium/Sodium Chloride (Heparin/ 0.45% Nacl-25,000 Unit/500 Ml) 25,000 unit in 500 mls @ 30 mls/hr IV TITR ANNE; Protocol Last Admin: 08/18/20 08:57 Dose: 1,500 units/hr, 30 mls/hr Documented by: Review of Systems All systems: negative Exam - Constitutional Vitals: Temp Pulse Resp BP Pulse Ox 98.2 F 73 11 L 124/70 99 08/18/20 04:09 08/18/20 09:01 08/18/20 09:01 08/18/20 09:01 08/18/20 09:01 General appearance: Present: no acute distress - EENT Eyes: Present: EOM intact ENT: hearing intact - Neck Neck: Present: supple, normal ROM - Respiratory Respiratory effort: normal - Abdominal General gastrointestinal: Present: tender Male genitourinary: Present: deferred - Rectal Rectal Exam: deferred - Psychiatric Psychiatric: appropriate mood/affect, cooperative Results - Labs CBC & Chem 7: 08/17/20 22:56 08/17/20 22:56 Labs: Abnormal lab results 08/17/20 08/18/20 Range/Units 22:56 08:05 RBC 5.45 H (3.65-5.03) M/mm3 MCV 81 L (84-94) fl MCH 26 L (28-32) pg RDW 15.7 H (13.2-15.2) % [place] % (Auto) 9.4 H (0.0-7.3) % [place] # (Auto) 0.9 H (0.0-0.8) K/mm3 INR 1.14 H (0.87-1.13) - Imaging and Cardiology CT scan - abdomen: image reviewed CT scan - pelvis: image reviewed Assessment and Plan Patient with SMV and portal vein nonocclusive thrombus. Inflammatory stranding is present. At this time, we will initiate a heparin drip. Additionally, surgery will need to be consulted. Given the patient's hematemesis, the patient may need GI consultation. Given the patient's recent surgery, will initiate conservative management with anticoagulation. Thrombolysis this close to his surgery will carry significantly increased risk for bleeding of the surgical site.
--- NOTE | 2020-08-18 09:57 | History and Physical Report ---
History of Present Illness Date of examination: 08/18/20 Date of admission: 08/18/20 06:58 Chief complaint: abdominal pain History of present illness: Patient is a 34-year-old male presents emergency room with complaints of abdominal pain, nausea, vomiting for 4 days and blood-streaked emesis for last one day. Patient states he had a gastric sleeve procedure 3 weeks ago in [place]. Patient states the pain is severe, sharp, 8 out of 10, diffusely located in the abdomen. A CT scan of the abdomen pelvis in the ER was performed which demonstrates nonocclusive thrombus within the SMV and portal vein with inflammatory stranding. Vascular surgeon was consulted in the ER and recommended to initiate heparin drip. Patient noted to have hemoglobin of 14.3 with a normal BUN/creatinine. Patient is being admitted for further evaluation and management for SMV thrombus and GI bleed. Past medical History: none Past surgical History: Gastric sleeve surgery Social History: Lives with family, denies any smoking, drinking and elicit drug abuse. Family History: No significant history of blood clot, hypercoagulability. Review of System: Constitutional: no fever, no chills, no weight loss Ears, eyes, nose, mouth and throat: no nasal congestion, no nasal discharge, no sinus pressure, no vision change, no red eye. Neck: No neck pain or rigidity. Cardiovascular: No chest pain, no orthopnea, no palpitations, no leg swelling Respiratory: No shortness of breath, no cough, no congestion, no wheezing Gastrointestinal: no abdominal pain, no nausea, no vomiting Genitourinary : no dysuria, no hematuria Musculoskeletal: no joint swelling or muscle ache Integumentary: no rash, no pruritis Neurological: no parathesias, no numbness, no tingling Endocrine: no cold or heat intolerance, no polyuria or polydipsia Hematologic/Lymphatic: no easy bruising, no easy bleeding, no gland swelling Allergic/Immunologic: no urticaria, no angioedema. Medications and Allergies Allergies Allergy/AdvReac Type Severity Reaction Status Date / Time No Known Allergies Allergy Unverified 01/18/17 08:58 Home Medications Medication Instructions Recorded Confirmed Last Taken Type Colchicine [Colcrys] 0.6 mg PO DAILY #10 tablet 01/18/17 Unknown Rx predniSONE [Deltasone] 20 mg PO DAILY #5 tablet 01/18/17 Unknown Rx traMADoL [Ultram] 50 mg PO Q6HR PRN #12 tablet 01/18/17 Unknown Rx Amlodipine Besylate [Norvasc] 2.5 mg PO DAILY #30 tablet 01/13/18 Unknown Rx Ibuprofen [Motrin] 800 mg PO Q8HR PRN #14 tablet 01/13/18 Unknown Rx traMADoL [Ultram] 50 mg PO Q6HR PRN #10 tablet 01/13/18 Unknown Rx Amoxicillin/Potassium Clav 1 each PO Q12H #20 tablet 08/13/18 Unknown Rx [Augmentin 875-125 Tablet] Benzonatate [Tessalon Perles] 100 mg PO Q8HR #30 capsule 08/13/18 Unknown Rx Cetirizine HCl [ZyrTEC] 10 mg PO DAILY #30 capsule 08/13/18 Unknown Rx Ibuprofen [Motrin] 600 mg PO Q8H PRN #20 tablet 08/13/18 Unknown Rx Ondansetron [Zofran Odt] 4 mg PO Q6HR #15 tab.rapdis 08/13/18 Unknown Rx methylPREDNISolone [Medrol] 4 mg PO DAILY #21 tab.ds.pk 08/13/18 Unknown Rx Ketorolac [Toradol] 10 mg PO Q6H PRN #8 tablet 10/04/18 Unknown Rx Ondansetron [Zofran Odt] 4 mg PO Q8HR PRN #15 tab.rapdis 10/04/18 Unknown Rx traMADoL [Ultram 50 MG tab] 50 mg PO Q6HR PRN #8 tablet 10/04/18 Unknown Rx Active Meds: Active Medications Heparin Sodium/Sodium Chloride (Heparin/ 0.45% Nacl-25,000 Unit/500 Ml) 25,000 unit in 500 mls @ 30 mls/hr IV TITR ANNE; Protocol Last Admin: 08/18/20 08:57 Dose: 1,500 units/hr, 30 mls/hr Documented by: Exam - Physical Exam Narrative exam: GENERAL: well-developed obese -[place] male lying on bed appeared to be in no discomfort. HEENT: Normocephalic. Atraumatic. No conjunctival congestion or icterus. Patient has moist mucous membranes. NECK: Supple. Trachea midline. CHEST/LUNGS: Clear to auscultated bilaterally, breathing nonlabored. No wheezes crackles or rhonchi. HEART/CARDIOVASCULAR: Regular in rate and rhythm. S1 and S2 positive. ABDOMEN: Abdomen is soft, nontender. Patient has normal bowel sounds. SKIN: There is no rash. Warm and dry. NEURO: No focal motor deficit. Follows command. MUSCULOSKELETAL: No joint effusion or tenderness. EXTRIMITY: No edema, no cyanosis or clubbing. PSYCH: Cooperative. - Constitutional Vitals: Temp Pulse Resp BP Pulse Ox 98.2 F 73 11 L 124/70 99 08/18/20 04:09 08/18/20 09:01 08/18/20 09:01 08/18/20 09:01 08/18/20 09:01 Results - Labs CBC & Chem 7: 08/17/20 22:56 08/17/20 22:56 Labs: Abnormal lab results 08/17/20 08/18/20 Range/Units 22:56 08:05 RBC 5.45 H (3.65-5.03) M/mm3 MCV 81 L (84-94) fl MCH 26 L (28-32) pg RDW 15.7 H (13.2-15.2) % [place] % (Auto) 9.4 H (0.0-7.3) % [place] # (Auto) 0.9 H (0.0-0.8) K/mm3 INR 1.14 H (0.87-1.13) - Imaging and Cardiology CT scan - abdomen: report reviewed Assessment and Plan Acute GI bleed SMV nonocclusive thrombus History of recent bariatric surgery Morbid obesity --Patient admitted to [facility], initiated on heparin drip --Vascular surgery and GI is consulted --Monitor H&H, placed on Protonix IV -N.p.o. for now, monitor clinically
[2020-08-18] MEDS ORDERED: HYDROmorphone 1 MG/1 ML INJ ONE (11:43)
[2020-08-18] MEDS: HYDROmorphone 1 MG/1 ML INJ IV ONE ×2 (12:08→12:20)
--- NOTE | 2020-08-18 13:04 | Consultation ---
History of Present Illness Consult date: 08/18/20 Reason for consult: abdominal pain - History of present illness History of present illness: 34 year old male presented to ED with a two day hx of worsening abdominal pain, n/v with some hemetmasis. He had sleeve gastrectomy 3 weeks ago in [place]. 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 At examination pt says his pain is about a 6/10 in the epigastric area. He has not vomited since he has been in the hospital and been seen by vascular who recommends more conservative therapy with anti-coagulation. Past History Past Medical History: No medical history Past Surgical History: Other (lap gastric sleeve) Social history: no significant social history Medications and Allergies Allergies Allergy/AdvReac Type Severity Reaction Status Date / Time No Known Allergies Allergy Unverified 01/18/17 08:58 Home Medications Medication Instructions Recorded Confirmed Last Taken Type Colchicine [Colcrys] 0.6 mg PO DAILY #10 tablet 01/18/17 Unknown Rx predniSONE [Deltasone] 20 mg PO DAILY #5 tablet 01/18/17 Unknown Rx traMADoL [Ultram] 50 mg PO Q6HR PRN #12 tablet 01/18/17 Unknown Rx Amlodipine Besylate [Norvasc] 2.5 mg PO DAILY #30 tablet 01/13/18 Unknown Rx Ibuprofen [Motrin] 800 mg PO Q8HR PRN #14 tablet 01/13/18 Unknown Rx traMADoL [Ultram] 50 mg PO Q6HR PRN #10 tablet 01/13/18 Unknown Rx Amoxicillin/Potassium Clav 1 each PO Q12H #20 tablet 08/13/18 Unknown Rx [Augmentin 875-125 Tablet] Benzonatate [Tessalon Perles] 100 mg PO Q8HR #30 capsule 08/13/18 Unknown Rx Cetirizine HCl [ZyrTEC] 10 mg PO DAILY #30 capsule 08/13/18 Unknown Rx Ibuprofen [Motrin] 600 mg PO Q8H PRN #20 tablet 08/13/18 Unknown Rx Ondansetron [Zofran Odt] 4 mg PO Q6HR #15 tab.rapdis 08/13/18 Unknown Rx methylPREDNISolone [Medrol] 4 mg PO DAILY #21 tab.ds.pk 08/13/18 Unknown Rx Ketorolac [Toradol] 10 mg PO Q6H PRN #8 tablet 10/04/18 Unknown Rx Ondansetron [Zofran Odt] 4 mg PO Q8HR PRN #15 tab.rapdis 10/04/18 Unknown Rx traMADoL [Ultram 50 MG tab] 50 mg PO Q6HR PRN #8 tablet 10/04/18 Unknown Rx Active Meds: Active Medications Heparin Sodium/Sodium Chloride (Heparin/ 0.45% Nacl-25,000 Unit/500 Ml) 25,000 unit in 500 mls @ 30 mls/hr IV TITR ANNE; Protocol Last Admin: 08/18/20 08:57 Dose: 1,500 units/hr, 30 mls/hr Documented by: Dextrose/Sodium Chloride (D5ns) 1,000 mls @ 75 mls/hr IV DIRECT ANNE Pantoprazole Sodium (Pantoprazole 40 Mg Inj) 40 mg IV BID ANNE Review of Systems - Constitutional poor appetite - Cardiovascular no chest pain - Respiratory no shortness of breath - Gastrointestinal abdominal pain, nausea, vomiting - Genitourinary no dysuria Exam Vital Signs Temp Pulse Resp BP Pulse Ox 98.9 F 100 H 18 123/94 96 08/17/20 22:09 08/17/20 22:09 08/17/20 22:09 08/17/20 22:09 08/17/20 22:09 - General physical appearance Positive: well developed, no distress, moderate pain - Respiratory Positive: normal expansion, normal respiratory effort - Cardiovascular Heart Sounds: Present: S1 & S2 - Extremities Extremities: no ischemia - Abdomen Abdomen: Present: soft, other (tender to palpation in the epigastric area. incision healing well). Absent: distended, rebound, guarding, rigid Results - Labs 08/17/20 22:56 08/17/20 22:56 Abnormal lab results 08/17/20 08/18/20 Range/Units 22:56 08:05 RBC 5.45 H (3.65-5.03) M/mm3 MCV 81 L (84-94) fl MCH 26 L (28-32) pg RDW 15.7 H (13.2-15.2) % [place] % (Auto) 9.4 H (0.0-7.3) % [place] # (Auto) 0.9 H (0.0-0.8) K/mm3 INR 1.14 H (0.87-1.13) Diabetes panel 08/17/20 Range/Units 22:56 Sodium 141 (137-145) mmol/L Potassium 4.6 (3.6-5.0) mmol/L Chloride 99.1 (98-107) mmol/L Carbon Dioxide 27 (22-30) mmol/L BUN 10 (9-20) mg/dL Creatinine 1.1 (0.8-1.3) mg/dL Glucose 90 (75-100) mg/dL Calcium 9.5 (8.4-10.2) mg/dL Calcium panel 08/17/20 Range/Units 22:56 Calcium 9.5 (8.4-10.2) mg/dL Pituitary panel 08/17/20 Range/Units 22:56 Sodium 141 (137-145) mmol/L Potassium 4.6 (3.6-5.0) mmol/L Chloride 99.1 (98-107) mmol/L Carbon Dioxide 27 (22-30) mmol/L BUN 10 (9-20) mg/dL Creatinine 1.1 (0.8-1.3) mg/dL Glucose 90 (75-100) mg/dL Calcium 9.5 (8.4-10.2) mg/dL Adrenal panel 08/17/20 Range/Units 22:56 Sodium 141 (137-145) mmol/L Potassium 4.6 (3.6-5.0) mmol/L Chloride 99.1 (98-107) mmol/L Carbon Dioxide 27 (22-30) mmol/L BUN 10 (9-20) mg/dL Creatinine 1.1 (0.8-1.3) mg/dL Glucose 90 (75-100) mg/dL Calcium 9.5 (8.4-10.2) mg/dL - Imaging CT scan - abdomen: report reviewed, image reviewed CT scan - pelvis: report reviewed, image reviewed Assessment and Plan 34 year old male 3 weeks s/p lap gastric sleeve with 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 This event is well known after gastric sleeve surgery and usually does not require surgical intervention unless there is concern for tissue perfusion inadequacy. Currently pt is stable and will be started on anti- coagulation therapy. Appreciate vascular recommendations. Pt can be started on clear liquids and advanced to full liquids as tolerated. start PPI therapy as well. Once patient's pain is controlled and he is tolerated liquids he can be discharged with anti-coagulation therapy per vascular and can follow up with me in the office as an out patient for post op bariatric maintenance follow up.
[2020-08-18] MEDS: PANTOPRAZOLE 40 MG INJ IV SCH ×2 (15:42→23:40)
[2020-08-18] MEDS: HYDROmorphone 1 MG/1 ML INJ IV PRN (22:08)
[2020-08-19] MEDS: HEPARIN/ 0.45% NACL DRIP 25,000 UNIT/500 ML BAG IV SCH (01:07)
[2020-08-19] MEDS: D5W/0.9% NACL 1,000 ML IV SCH ×2 (01:16→13:38)
--- NOTE | 2020-08-19 02:27 | Consultation ---
DATE OF CONSULTATION: 08/18/2020 REFERRING PHYSICIAN: Dr. Natacha Pop. INDICATIONS: 1. Abdominal pain. 2. Coffee emesis. HISTORY OF PRESENT ILLNESS: A 34-year-old black male who presents with abdominal pain. The patient is status post recent gastric sleeve 3 weeks ago in [place]. The patient reports since that time now progressive severe sharp mid abdominal pain. He reported some coffee emesis. He reports a single bout of dark stools. The patient reports the pain became more significant and he subsequently came to the Emergency Room. In the Emergency Room, he had a CT scan showing SMV thrombosis and subsequently was admitted and GI consulted. The patient reports no further bleeding. No other specific complaints. PAST ____ HISTORY: Negative. MEDICATIONS: See chart. ALLERGIES: No known drug allergies. SOCIAL HISTORY: Reports social alcohol, denies tobacco. FAMILY HISTORY: Negative for colon cancer, IBD, or liver disease. REVIEW OF SYSTEMS: GENERAL: Reports mild weakness. HEENT: No ____. PULMONARY: Denies shortness of breath, chest pain. GASTROINTESTINAL: Reports mid abdominal pain. All points of 13-point review of system otherwise negative. PHYSICAL EXAMINATION: VITAL SIGNS: Temperature 98.7, pulse 77, respirations 18, pressure 130/80. GENERAL: Fairly nourished, slightly obese black male in no acute distress. HEENT: Pupils round and reactive. PULMONARY: Clear to auscultation bilaterally. CARDIOVASCULAR: Regular rhythm, normal S1, S2. ABDOMEN: Positive bowel sounds, soft. SKIN: No obvious rashes. LABORATORY DATA: Pertinent for a white count of 9.8, hemoglobin and hematocrit of 14.3 and 44, platelet count of 186. Chem-[address] scan of abdomen and pelvis performed on 08/18/2020 showed acute nonocclusive thrombus of the portal and superior mesenteric vein, but otherwise negative. ASSESSMENT AND PLAN: A 34-year-old black male, somewhat obese, status post recent gastric sleeve and now presents with abdominal pain with reported coffee emesis. I have reviewed the chart as well as ____ note from Surgery. Reportedly, thrombus is not uncommon after a gastric sleeve and should be treated conservatively. At this time, the patient's hemoglobin and hematocrit are stable and he has no more further signs of bleeding, so from a GI standpoint, I think a conservative approach is best. PLAN: 1. Follow hematocrit and transfuse as needed. 2. PPI IV b.i.d. 3. Okay to start clear liquid diet and advance as tolerated. 4. We will review a CT scan. 5. No plans for EGD at this time. 6. We will follow. Further recommendations based on progress. TID: [id number] RECEIPT: [id number] [facility]/I/CRYSTALI
[2020-08-19 09:00] LABS: Hematocrit 40.9 % (35.5-45.6); Hemoglobin 13.3 gm/dl (11.8-15.2); Mean Corpuscular HGB Conc 32 % (32-34); Mean Corpuscular Volume 81 fl (84-94); Platelet Count 182 K/mm3 (140-440); Red Blood Count 5.04 M/mm3 (3.65-5.03); Red Cell Distribution Width 16.1 % (13.2-15.2)
[2020-08-19 09:20] LABS: INR 1.1 (0.87-1.13); Partial Thromboplastin Time 47.8 Sec. (24.2-36.6)
[2020-08-19] MEDS: PANTOPRAZOLE 40 MG INJ IV SCH ×2 (09:33→22:04)
[2020-08-19] MEDS: APIXABAN 5 MG TAB PO SCH ×2 (09:33→22:04)
--- NOTE | 2020-08-19 12:28 | Progress Note ---
Assessment and Plan Acute GI bleed SMV nonocclusive thrombus History of recent bariatric surgery Morbid obesity --H and H remains stable -Change heparin drip to Eliquis today -GI and general surgeon following -Patient on clear liquid diet with very poor p.o. intake -Continue to follow, if able to tolerate diet better and H&H remained stable patient be discharged home likely tomorrow morning Subjective Date of service: 08/19/20 Interval history: Patient seen and examined. Medical records and medication list reviewed. No acute event overnight noted by the RN. Patient denies any chest pain or difficulty breathing. Patient is tolerating clear liquid diet with very poor oral intake as still has sig nausea Discussed plan of care at bedside with patient. Objective - Exam Narrative Exam: GENERAL: well-developed obese -[place] male lying on bed appeared to be in no discomfort. HEENT: Normocephalic. Atraumatic. No conjunctival congestion or icterus. Patient has moist mucous membranes. NECK: Supple. Trachea midline. CHEST/LUNGS: Clear to auscultated bilaterally, breathing nonlabored. No wheezes crackles or rhonchi. HEART/CARDIOVASCULAR: Regular in rate and rhythm. S1 and S2 positive. ABDOMEN: Abdomen is soft, nontender. Patient has normal bowel sounds. SKIN: There is no rash. Warm and dry. NEURO: No focal motor deficit. Follows command. MUSCULOSKELETAL: No joint effusion or tenderness. EXTRIMITY: No edema, no cyanosis or clubbing. PSYCH: Cooperative. - Constitutional Vitals: Vital Signs - 12hr 08/19/20 08/19/20 08/19/20 00:29 04:00 09:39 Temperature 98.7 F 98.4 F 97.9 F Pulse Rate 76 70 81 Pulse Rate [ Apical] Pulse Rate [ From Monitor] Respiratory 18 18 17 Rate Blood Pressure 132/88 122/71 Blood Pressure 115/71 [Left] O2 Sat by Pulse 97 97 98 Oximetry 08/19/20 10:00 Temperature Pulse Rate Pulse Rate [ 88 Apical] Pulse Rate [ 88 From Monitor] Respiratory 17 Rate Blood Pressure Blood Pressure [Left] O2 Sat by Pulse Oximetry - Labs CBC & Chem 7: 08/19/20 08:42 08/19/20 09:40 Labs: Abnormal lab results 08/18/20 08/19/20 08/19/20 Range/Units 14:34 08:42 08:42 RBC 5.04 H (3.65-5.03) M/mm3 MCV 81 L (84-94) fl MCH 26 L (28-32) pg RDW 16.1 H (13.2-15.2) % APTT (24.2-36.6) Sec. Heparin Anti-Xa Level 1.03 H 0.29 L (0.3-0.7) U.I./ml 08/19/20 Range/Units 09:13 RBC (3.65-5.03) M/mm3 MCV (84-94) fl MCH (28-32) pg RDW (13.2-15.2) % APTT 47.8 H (24.2-36.6) Sec. Heparin Anti-Xa Level (0.3-0.7) U.I./ml
[2020-08-19] MEDS: HYDROmorphone 1 MG/1 ML INJ IV PRN ×3 (13:40→18:30)
--- NOTE | 2020-08-19 17:02 | Gastroenterology Progress Note ---
Assessment and Plan GI: pt s/p gastric sleeve presented w/ abdominal pain and hematemesis w/ noted vascular clot - h/h stable, follow - no plans for egd at this time - continue ppi qd - advance diet as tolerated -ok to dc from GI standpoint if stable in am - will follow Subjective Date of service: 08/19/20 Interval history: - reports pain improving, denies signs bleeding Objective - Constitutional Vitals: Temp Pulse Resp BP Pulse Ox 97.9 F 88 17 115/71 98 08/19/20 09:39 08/19/20 10:00 08/19/20 10:00 08/19/20 09:39 08/19/20 09:39 General appearance: no acute distress - EENT Eyes: PERRL - Respiratory Respiratory: bilateral: CTA - Gastrointestinal General gastrointestinal: Present: soft, non-tender, non-distended - Labs CBC & Chem 7: 08/19/20 08:42 08/19/20 09:40 Labs: Laboratory Results - last 24 hr 08/19/20 08/19/20 08/19/20 08:42 08:42 09:13 WBC 6.9 RBC 5.04 H Hgb 13.3 Hct 40.9 MCV 81 L MCH 26 L MCHC 32 RDW 16.1 H Plt Count 182 PT 14.1 INR 1.10 APTT 47.8 H Heparin Anti-Xa Level 0.29 L Creatinine Estimated GFR 08/19/20 09:40 WBC RBC Hgb Hct MCV MCH MCHC RDW Plt Count PT INR APTT Heparin Anti-Xa Level Creatinine 1.0 Estimated GFR > 60
[2020-08-20] MEDS: D5W/0.9% NACL 1,000 ML IV SCH (05:29)
[2020-08-20 08:55] VITALS: BP 109/65
[2020-08-20] MEDS: PANTOPRAZOLE 40 MG INJ IV SCH (09:27)
[2020-08-20] MEDS: APIXABAN 5 MG TAB PO SCH (09:27)
[2020-08-20] MEDS ORDERED: METOCLOPRAMIDE 10 MG/2 ML INJ IV PRN (11:00)
--- NOTE | 2020-08-20 11:01 | Discharge Summary ---
Providers - Providers Date of Admission: 08/18/20 06:58 Date of discharge: 08/20/20 Attending physician: KADEN COLMENARES 08/18/20 06:51 Consult to Physician [CONS] Routine Comment: Dr. Medina spoke with Dr. Nguyen @ [phone] Consulting Provider: PENNY SANCHEZ Physician Instructions: Reason For Exam: Mesenteric thrombus Consult to Physician [CONS] Routine Comment: Dr. Medina spoke with Dr. Nguyen @ [phone] Consulting Provider: CHERRIE NGUYEN Physician Instructions: Reason For Exam: Status post gastric sleeve. 08/18/20 06:52 Consult to Physician [CONS] Routine Comment: Consulting Provider: MANNY RICHMOND Physician Instructions: Reason For Exam: Hematemesis Primary care physician: [employer] Hospitalization Condition: Critical Hospital course: Patient is a 34-year-old male who had a Gastric sleeve procedure done 6 weeks ago at [facility] presents emergency room with complaints of abdominal pain, nausea, vomiting for 4 days and blood-streaked emesis for last one day. A CT scan of the abdomen pelvis in the ER was performed which demonstrates nonocclusive thrombus within the SMV and portal vein with inflammatory stranding. Vascular surgeon was consulted in the ER and recommended to initiate heparin drip. Patient noted to have hemoglobin of 14.3 with a normal BUN/creatinine. Patient was admitted for further evaluation and management for SMV thrombus and GI bleed. Patient was further evaluated by general surgeon and GI. They recommended no further surgical intervention, patient was placed on clear liquid diet. His H&H was followed and remained stable, heparin drip was discontinued and bridged to Eliquis 10 mg twice daily. Patient was able to tolerate clear liquid diet and surgery recommended to continue clear liquid diet for now and advance diet as tolerated. Patient was then discharged home in stable condition with outpatient follow-up with general surgeon Dr. Nguyen. Discharge plan and management was thoroughly discussed with the patient and he verbalized understanding. Disposition: -01 TO HOME OR SELFCARE Final Discharge Diagnosis (Prints w/discharge instructions): Acute GI bleed. SMV and portal vein nonocclusive thrombus. History of recent bariatric surgery. Morbid obesity Time spent for discharge: 34 minutes Core Measure Documentation - Palliative Care Palliative Care/ Comfort Measures: Not Applicable - Core Measures Any of the following diagnoses?: none Exam - Physical Exam Narrative exam: GENERAL: well-developed obese -[place] male lying on bed appeared to be in no discomfort. HEENT: Normocephalic. Atraumatic. No conjunctival congestion or icterus. Patient has moist mucous membranes. NECK: Supple. Trachea midline. CHEST/LUNGS: Clear to auscultated bilaterally, breathing nonlabored. No wheezes crackles or rhonchi. HEART/CARDIOVASCULAR: Regular in rate and rhythm. S1 and S2 positive. ABDOMEN: Abdomen is soft, nontender. Patient has normal bowel sounds. SKIN: There is no rash. Warm and dry. NEURO: No focal motor deficit. Follows command. MUSCULOSKELETAL: No joint effusion or tenderness. EXTRIMITY: No edema, no cyanosis or clubbing. PSYCH: Cooperative. - Constitutional Vitals: Temp Pulse Resp BP Pulse Ox 97.8 F 70 16 109/65 98 08/20/20 08:53 08/20/20 09:55 08/20/20 09:55 08/20/20 08:53 08/20/20 09:55 Plan Activity: advance as tolerated Weight Bearing Status: Weight Bear as Tolerated Diet: other (clear liquid diet and advance per your surgeon's advice) Additional Instructions: You have diagnosed with portal vein and superior mesenteric vein/SMV thrombus. please continue Eliquis 10 mg twice daily for total 1 weeks then 5 mg twice a day at least 3 months but could be up to 6 months if needed. Repeat CBC and BMP in 1 week. Follow up with: PRIMARY CARE, [Primary Care Provider] - 7 Days CHERRIE NGUYEN MD [Staff Physician] - 7 Days Prescriptions: Apixaban [Eliquis] 10 mg PO Q12HR #60 tablet Pantoprazole [Protonix] 40 mg PO BID #60 tablet Metoclopramide HCl [Reglan TAB] 5 mg PO TIDAC #60 tablet
--- NOTE | 2020-08-20 14:33 | Gastroenterology Progress Note ---
Assessment and Plan GI: stable, decrease abdominal pain, no signs bleeding - advance diet as tolerated - f/u [per surgery - will sign off Subjective Date of service: 08/20/20 Interval history: - denies signs GI bleed, abdominal pain improved Objective - Constitutional Vitals: Temp Pulse Resp BP Pulse Ox 97.8 F 70 16 109/65 98 08/20/20 08:53 08/20/20 10:00 08/20/20 09:55 08/20/20 08:53 08/20/20 09:55 General appearance: no acute distress - EENT Eyes: PERRL - Respiratory Respiratory: bilateral: CTA - Cardiovascular Rhythm: regular Heart Sounds: Present: S1 & S2 - Gastrointestinal General gastrointestinal: Present: soft, non-tender, non-distended - Labs CBC & Chem 7: 08/19/20 08:42 08/19/20 09:40
[2020-08-21] MEDS ORDERED: PANTOPRAZOLE 40 MG TAB PO SCH (07:30)
== END 2020-08-20 12:03 | disposition home or self-care (01) | DRG 377 ==
LOC: ED 21:41 → IMCU 08-18 06:58 → 4A 08-18 22:51
PROVIDERS: ADMIT Internal Medicine; ATTEND Internal Medicine
DX: K92.2 Gastrointestinal hemorrhage, unspecified (principal); I81 Portal vein thrombosis; E66.01 Morbid (severe) obesity due to excess calories; Z98.84 Bariatric surgery status; Z68.36 Body mass index [BMI] 36.0-36.9, adult; Z79.891 Long term (current) use of opiate analgesic; Z79.899 Other long term (current) drug therapy; Z79.01 Long term (current) use of anticoagulants
CPT/HCPCS: 36415; 74177; 80048; 82565; 85025; 85027; 85520; 85610; 85730; 96361; 96374; G0378; C9113; J1170; J1644; J2405; J7030; J7042; Q9967

== ENCOUNTER 2020-09-03 10:12 | Emergency (ER) | payer BC ==
[2020-09-03] MEDS ORDERED: ONDANSETRON 4 MG/2 ML INJ IV ONE ×3 (11:56→17:06)
[2020-09-03] MEDS ORDERED: MORPHINE 4 MG/1 ML INJ IV ONE (11:56)
[2020-09-03] MEDS ORDERED: SODIUM CHLORIDE 0.9% 1000 ML 1,000 ML IV ONE (11:56)
--- NOTE | 2020-09-03 12:00 | Emergency Department Report ---
ED Abdominal Pain HPI - General Chief Complaint: Nausea/Vomiting/Diarrhea Stated Complaint: CONSTANT VOMITING Time Seen by Provider: 09/03/20 11:49 Source: patient Mode of arrival: Ambulatory Limitations: No Limitations - History of Present Illness Initial Comments: Patient is 34 years old male with recent history of gastric sleeve surgery in [place] in July 2020. Patient presented to the ER complaining of upper abdominal pain. Patient describes his pain as fullness associated with significant nausea and vomiting. Patient stated that he is unable to keep anything down. Patient denied any fever or chills. No chest pain or shortness of breath. Patient was admitted here 1 week ago for similar complaint and he was found to have thrombosis in the SMA and portal vein. Vascular was consulted and advised to do conservative treatment with anticoagulation. Patient also was seen by Dr. Nguyen and advised conservative treatment also. MD Complaint: abdominal pain -: days(s) (4) Location: epigastric Radiation: none Migration to: no migration Consistency: constant Associated Symptoms: nausea, vomiting. denies: diarrhea - Related Data Previous Rx's Medication Instructions Recorded Last Taken Type Colchicine [Colcrys] 0.6 mg PO DAILY #10 tablet 01/18/17 Unknown Rx Amlodipine Besylate [Norvasc] 2.5 mg PO DAILY #30 tablet 01/13/18 Unknown Rx Apixaban [Eliquis] 10 mg PO Q12HR #60 tablet 08/20/20 Unknown Rx Metoclopramide HCl [Reglan TAB] 5 mg PO TIDAC #60 tablet 08/20/20 Unknown Rx Pantoprazole [Protonix] 40 mg PO BID #60 tablet 08/20/20 Unknown Rx Ondansetron [Zofran Odt] 4 mg PO Q8HR PRN #14 tab.rapdis 09/03/20 Unknown Rx traMADoL [Ultram 50 MG tab] 50 mg PO Q4HR PRN #14 tablet 09/03/20 Unknown Rx Allergies Allergy/AdvReac Type Severity Reaction Status Date / Time No Known Allergies Allergy Verified 09/03/20 10:13 ED Review of Systems ROS: Stated complaint: CONSTANT VOMITING Other details as noted in HPI Comment: All other systems reviewed and negative Constitutional: denies: chills, fever Cardiovascular: denies: chest pain, palpitations Gastrointestinal: abdominal pain, nausea, vomiting. denies: diarrhea Musculoskeletal: denies: back pain Neurological: denies: headache, weakness, numbness, paresthesias, confusion ED Past Medical Hx - Past Medical History Previous Medical History?: No - Surgical History Additional Surgical History: Gastric sleeve 07/28/20 - Social History Smoking Status: Never Smoker Substance Use Type: None - Medications Home Medications: Home Medications Medication Instructions Recorded Confirmed Last Taken Type Colchicine [Colcrys] 0.6 mg PO DAILY #10 tablet 01/18/17 Unknown Rx Amlodipine Besylate [Norvasc] 2.5 mg PO DAILY #30 tablet 01/13/18 Unknown Rx Apixaban [Eliquis] 10 mg PO Q12HR #60 tablet 08/20/20 Unknown Rx Metoclopramide HCl [Reglan TAB] 5 mg PO TIDAC #60 tablet 08/20/20 Unknown Rx Pantoprazole [Protonix] 40 mg PO BID #60 tablet 08/20/20 Unknown Rx Ondansetron [Zofran Odt] 4 mg PO Q8HR PRN #14 tab.rapdis 09/03/20 Unknown Rx traMADoL [Ultram 50 MG tab] 50 mg PO Q4HR PRN #14 tablet 09/03/20 Unknown Rx ED Physical Exam - General Limitations: No Limitations General appearance: alert, in no apparent distress - Head Head exam: Present: atraumatic, normocephalic, normal inspection - Eye Eye exam: Present: normal appearance, PERRL - ENT ENT exam: Present: mucous membranes dry - Neck Neck exam: Present: normal inspection, full ROM. Absent: tenderness, meningismus - Respiratory Respiratory exam: Present: normal lung sounds bilaterally - Cardiovascular Cardiovascular Exam: Present: regular rate, normal rhythm, normal heart sounds - GI/Abdominal GI/Abdominal exam: Present: soft, normal bowel sounds. Absent: distended, tenderness, guarding, rebound, rigid, organomegaly, mass, bruit, pulsatile mass, hernia - Back Exam Back exam: Present: normal inspection, full ROM. Absent: CVA tenderness (R), CVA tenderness (L) - Neurological Exam Neurological exam: Present: alert, oriented X3, CN II-XII intact, normal gait, reflexes normal. Absent: motor sensory deficit - Psychiatric Psychiatric exam: Present: normal mood - Skin Skin exam: Present: warm, intact, normal color ED Course Vital Signs 09/03/20 09/03/20 09/03/20 10:13 12:24 12:30 Temperature 98 F Pulse Rate 79 68 Respiratory 18 11 L 11 L Rate Blood Pressure 146/115 132/87 O2 Sat by Pulse 98 100 100 Oximetry 09/03/20 09/03/20 09/03/20 13:00 13:30 14:00 Temperature Pulse Rate 71 69 65 Respiratory 14 20 14 Rate Blood Pressure 119/82 119/82 130/72 O2 Sat by Pulse 99 99 95 Oximetry 09/03/20 09/03/20 09/03/20 14:30 15:00 15:30 Temperature Pulse Rate 69 66 Respiratory 19 13 Rate Blood Pressure 129/74 128/74 128/74 O2 Sat by Pulse 97 98 98 Oximetry 09/03/20 09/03/20 09/03/20 16:00 16:30 17:00 Temperature Pulse Rate 75 Respiratory 15 Rate Blood Pressure 128/77 125/77 130/76 O2 Sat by Pulse 98 98 97 Oximetry 09/03/20 09/03/20 17:30 18:00 Temperature Pulse Rate Respiratory Rate Blood Pressure 138/83 121/79 O2 Sat by Pulse 100 98 Oximetry ED Medical Decision Making - Lab Data Result diagrams: 09/03/20 12:24 09/03/20 12:24 - Medical Decision Making Patient is 34 years old male with recent history of gastric sleeve surgery in [place] in July 2020. Patient presented to the ER complaining of upper abdominal pain. Patient describes his pain as fullness associated with signific ant nausea and vomiting. Patient stated that he is unable to keep anything down. Patient denied any fever or chills. No chest pain or shortness of breath. Patient was admitted here 1 week ago for similar complaint and he was found to have thrombosis in the SMA and portal vein. Vascular was consulted and advised to do conservative treatment with anticoagulation. Patient also was seen by Dr. Nguyen and advised conservative treatment also. Critical care attestation.: If time is entered above; I have spent that time in minutes in the direct care of this critically ill patient, excluding procedure time. ED Disposition Clinical Impression: Nausea & vomiting, Acute abdominal pain Disposition: -01 TO HOME OR SELFCARE Is pt being admited?: No Condition: Stable Instructions: Abdominal Pain, Adult, Nausea and Vomiting, Adult Prescriptions: traMADoL [Ultram 50 MG tab] 50 mg PO Q4HR PRN #14 tablet PRN Reason: Pain Ondansetron [Zofran Odt] 4 mg PO Q8HR PRN #14 tab.rapdis PRN Reason: Nausea And Vomiting Referrals: CHERRIE NGUYEN MD [Staff Physician] - [facility], [Primary Care Provider] - 3-5 Days
[2020-09-03 12:47] LABS: Basophils # (Auto) 0.1 K/mm3 (0.0-0.1); Basophils % (Auto) 0.8 % (0.0-1.8); Eosinophils # (Auto) 0.1 K/mm3 (0.0-0.4); Eosinophils % (Auto) 1.3 % (0.0-4.3); Hemoglobin 14.9 gm/dl (11.8-15.2); Lymphocytes # (Auto) 2.2 K/mm3 (1.2-5.4); Lymphocytes % (Auto) 27.5 % (13.4-35.0); Mean Corpuscular HGB Conc 33 % (32-34); Mean Corpuscular Volume 80 fl (84-94); Monocytes # (Auto) 0.8 K/mm3 (0.0-0.8); Monocytes % (Auto) 10.2 % (0.0-7.3); Platelet Count 140 K/mm3 (140-440); Red Blood Count 5.62 M/mm3 (3.65-5.03)
[2020-09-03 13:10] LABS: Alanine Aminotransferase 45 units/L (7-56); Albumin 4.4 g/dL (3.9-5); BUN/Creatinine Ratio 8; Bilirubin,Direct 0.4 mg/dL (0-0.2); Blood Urea Nitrogen 8 mg/dL (9-20); Calcium 9.6 mg/dL (8.4-10.2); Hemolysis Index 2
[2020-09-03] MEDS ORDERED: HYDROmorphone 1 MG/1 ML INJ IV ONE ×2 (13:44→14:55)
--- NOTE | 2020-09-03 16:04 | Cat Scan Report ---
CT OF THE ABDOMEN AND PELVIS WITH INTRAVENOUS CONTRAST INDICATION / CLINICAL INFORMATION: Abdominal pain. TECHNIQUE: The patient received 100 cc Omnipaque [address] scans at this location are performed using CT dose reduction for ALARA by means of automated exposure control. COMPARISON: 08/18/20. FINDINGS: ABDOMEN: The previously described thrombus in the portal vein is again identified and has improved. T hrombus in the superior mesenteric vein is better seen, but is probably just lower in density and mor e chronic in appearance on the current exam. Soft tissue stranding surrounding the mesenteric vein escobedo s improved. There is prior vertical gastric sleeve procedure. There is no evidence of bowel wall thic kening or pneumatosis. There is no evidence of bowel obstruction, wall thickening or free air. There is moderate inhomogeneous fatty infiltration of the liver, unchanged. The gallbladder, bile laurel ts, pancreas, spleen, adrenal glands and kidneys are normal. No adenopathy is present. There is mild bibasilar dependent atelectasis. PELVIS: The distal ureters, urinary bladder, prostate gland and seminal vesicles are unremarkable. A normal appendix is present and there is no evidence of diverticulitis. No abnormal mass or fluid vanda ection is seen. I do not identify a hernia. No acute osseous abnormality is present. 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 Signer Name: Osorio Jennings MD Signed: 09/03/2020 3:59 PM Workstation Name: [id number]
[2020-09-03] MEDS ORDERED: HYDROmorphone 2 MG/1 ML INJ IV ONE (17:02)
[2020-09-03 18:30] VITALS: BP 121/79
== END 2020-09-03 18:00 | disposition home or self-care (01) ==
LOC: ED 10:12
DX: R10.13 Epigastric pain (principal); R11.2 Nausea with vomiting, unspecified; Z98.890 Other specified postprocedural states; Z79.899 Other long term (current) drug therapy
CPT/HCPCS: 36415; 74177; 80048; 80076; 83690; 85025; 96361; 96374; 96375; 96376; 99284; J1170; J2270; J2405; J7030; Q9967

== ENCOUNTER 2020-09-13 08:50 | Emergency (ER) | payer BC ==
[2020-09-13 14:28] VITALS: BP 130/93
--- NOTE | 2020-09-20 11:06 | Electrocardiograph Report ---
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
== END 2020-09-13 09:00 | disposition left against medical advice (07) ==
LOC: ED 08:50
DX: R53.1 Weakness (principal); Z53.21 Procedure and treatment not carried out due to patient leaving prior to being seen by health care provider
CPT/HCPCS: 93005

== ENCOUNTER 2020-09-25 11:14 | Observation (INO) | payer BC ==
--- NOTE | 2020-09-25 11:54 | Event Note ---
ED Screening Note Date of service: 09/25/20 Time: 11:52 ED Screening Note: 34-year-old -[place] male presents to the emergency room for nausea vomiting dizziness throwing up blood sore throat for the last 2 days. Patient complains of abdominal pain as well as chest discomfort. Patient recently had a gastric sleeve done by Dr. Nguyen in July. Patient states he went to have a procedure done in radiology and started vomiting up blood. Patient states that he was diagnosed with clot and is currently on Eliquis. This initial assessment/diagnostic orders/clinical plan/treatment(s) is/are subject to change based on patients health status, clinical progression and re- assessment by fellow clinical providers in the ED. Further treatment and workup at subsequent clinical providers discretion. Patient/guardian urged not to elope from the ED as their condition may be serious if not clinically assessed and managed. Initial orders include:
[2020-09-25] MEDS ORDERED: PANTOPRAZOLE 40 MG INJ IV ONE (12:03)
[2020-09-25] MEDS ORDERED: ONDANSETRON 4 MG/2 ML INJ IV ONE (12:03)
[2020-09-25] MEDS ORDERED: MORPHINE 4 MG/1 ML INJ IV ONE (12:03)
[2020-09-25] MEDS ORDERED: SODIUM CHLORIDE 0.9% 1000 ML 1,000 ML IV ONE (12:03)
--- NOTE | 2020-09-25 12:06 | Emergency Department Report ---
ED Abdominal Pain HPI - General Chief Complaint: Nausea/Vomiting/Diarrhea Stated Complaint: VOMITING Time Seen by Provider: 09/25/20 11:40 Source: patient Mode of arrival: Ambulatory Limitations: No Limitations - History of Present Illness Initial Comments: Patient is 34 years old male with history of gastric sleeve. I saw the patient previously. Patient presented to the ER complaining of diffuse abdominal pain, nausea and vomiting. Patient stated that he was sent by Dr. Nguyen for barium swallow this morning and he started vomiting blood. Patient stated that he is feeling dizzy. Patient denied any chest pain or shortness of breath. Patient denied any hematochezia, melena or hematuria. No hemoptysis. MD Complaint: abdominal pain -: This morning Location: diffuse Radiation: none Migration to: no migration Severity scale (0 -10): 10 Quality: sharp - Related Data Previous Rx's Medication Instructions Recorded Last Taken Type Colchicine [Colcrys] 0.6 mg PO DAILY #10 tablet 01/18/17 Unknown Rx Amlodipine Besylate [Norvasc] 2.5 mg PO DAILY #30 tablet 01/13/18 Unknown Rx Apixaban [Eliquis] 10 mg PO Q12HR #60 tablet 08/20/20 Unknown Rx Metoclopramide HCl [Reglan TAB] 5 mg PO TIDAC #60 tablet 08/20/20 Unknown Rx Pantoprazole [Protonix] 40 mg PO BID #60 tablet 08/20/20 Unknown Rx Ondansetron [Zofran Odt] 4 mg PO Q8HR PRN #14 tab.rapdis 09/03/20 Unknown Rx traMADoL [Ultram 50 MG tab] 50 mg PO Q4HR PRN #14 tablet 09/03/20 Unknown Rx Allergies Allergy/AdvReac Type Severity Reaction Status Date / Time No Known Allergies Allergy Verified 09/03/20 10:13 ED Review of Systems ROS: Stated complaint: VOMITING Other details as noted in HPI Comment: All other systems reviewed and negative Constitutional: denies: chills, fever Respiratory: denies: cough, shortness of breath, SOB with exertion Cardiovascular: denies: chest pain, palpitations Gastrointestinal: abdominal pain, nausea, vomiting, constipation, hematemesis. denies: diarrhea, melena, hematochezia ED Past Medical Hx - Past Medical History Previous Medical History?: No - Surgical History Past Surgical History?: Yes Additional Surgical History: Gastric sleeve 07/28/20 - Social History Smoking Status: Never Smoker Substance Use Type: None - Medications Home Medications: Home Medications Medication Instructions Recorded Confirmed Last Taken Type Colchicine [Colcrys] 0.6 mg PO DAILY #10 tablet 01/18/17 Unknown Rx Amlodipine Besylate [Norvasc] 2.5 mg PO DAILY #30 tablet 01/13/18 Unknown Rx Apixaban [Eliquis] 10 mg PO Q12HR #60 tablet 08/20/20 Unknown Rx Metoclopramide HCl [Reglan TAB] 5 mg PO TIDAC #60 tablet 08/20/20 Unknown Rx Pantoprazole [Protonix] 40 mg PO BID #60 tablet 08/20/20 Unknown Rx Ondansetron [Zofran Odt] 4 mg PO Q8HR PRN #14 tab.rapdis 09/03/20 Unknown Rx traMADoL [Ultram 50 MG tab] 50 mg PO Q4HR PRN #14 tablet 09/03/20 Unknown Rx ED Physical Exam - General Limitations: No Limitations General appearance: alert, in no apparent distress - Head Head exam: Present: atraumatic, normocephalic, normal inspection - Eye Eye exam: Present: normal appearance, PERRL - ENT ENT exam: Present: normal exam, normal orophraynx, mucous membranes moist - Neck Neck exam: Present: normal inspection, full ROM. Absent: tenderness, meningismus - Respiratory Respiratory exam: Present: normal lung sounds bilaterally - Cardiovascular Cardiovascular Exam: Present: bradycardia - GI/Abdominal GI/Abdominal exam: Present: soft, normal bowel sounds. Absent: distended, tenderness, guarding, rebound, rigid, organomegaly, mass, bruit, pulsatile mass, hernia - Extremities Exam Extremities exam: Present: normal inspection, full ROM, normal capillary refill. Absent: tenderness - Back Exam Back exam: Present: normal inspection, full ROM. Absent: CVA tenderness (R), CVA tenderness (L) - Neurological Exam Neurological exam: Present: alert, oriented X3, CN II-XII intact - Psychiatric Psychiatric exam: Present: normal mood - Skin Skin exam: Present: warm, intact, normal color ED Course Vital Signs 09/25/20 09/25/20 11:19 12:43 Temperature 97.9 F Pulse Rate 51 L Respiratory 18 18 Rate Blood Pressure 130/95 [Right] O2 Sat by Pulse 99 Oximetry - Consultations Consultation #1: 09/25/20 15:10 I discussed the patient with Dr. Nguyen, surgeon following the patient. Dr. Nguyen stated that patient has been vomiting for a week. He stated that patient is not keeping p.o. patient will need to be admitted to the hospital for further management however there is no surgical intervention at this moment. ED Medical Decision Making - Lab Data Result diagrams: 09/25/20 12:24 09/25/20 12:24 - Radiology Data Radiology results: report reviewed - Medical Decision Making Patient is 34 years old male with history of gastric sleeve. I saw the patient previously. Patient presented to the ER complaining of diffuse abdominal pain, nausea and vomiting. Patient stated that he was sent by Dr. Nguyen for barium swallow this morning and he started vomiting blood. Patient stated that he is feeling dizzy. Patient denied any chest pain or shortness of breath. Patient denied any hematochezia, melena or hematuria. No hemoptysis. Labs reviewed and is unremarkable. I reviewed patient upper GI swallow done yesterday and is unremarkable. I discussed the patient with Dr. Nguyen she advised to admit the patient to the hospitalist for IV hydration and IV antiemetic. I discussed the patient with Dr. Reagan. Critical care attestation.: If time is entered above; I have spent that time in minutes in the direct care of this critically ill patient, excluding procedure time. ED Disposition Clinical Impression: Intractable nausea and vomiting Disposition: OP ADMIT IP TO THIS HOSP Is pt being admited?: Yes Condition: Stable Referrals: PRIMARY CARE,MD [Primary Care Provider] - 3-5 Days
--- NOTE | 2020-09-25 12:18 | XRay Report ---
CHEST 2 VIEWS INDICATION / CLINICAL INFORMATION: Chest pain shortness of breath. COMPARISON: None available. FINDINGS: SUPPORT DEVICES: None. HEART / MEDIASTINUM: No significant abnormality. LUNGS / PLEURA: No significant pulmonary or pleural abnormality. No pneumothorax. ADDITIONAL FINDINGS: No significant additional findings. IMPRESSION: 1. No acute findings. Signer Name: Joshua Funes MD Signed: 09/25/2020 12:13 PM Workstation Name: [id number]
[2020-09-25 12:54] LABS: Basophils % (Auto) 0.4 % (0.0-1.8); Eosinophils % (Auto) 0.1 % (0.0-4.3); Hematocrit 48.9 % (35.5-45.6); Hemoglobin 16.1 gm/dl (11.8-15.2); Lymphocytes # (Auto) 1.5 K/mm3 (1.2-5.4); Lymphocytes % (Auto) 18.5 % (13.4-35.0); Mean Corpuscular HGB Conc 33 % (32-34); Mean Corpuscular Volume 81 fl (84-94); Monocytes # (Auto) 0.7 K/mm3 (0.0-0.8); Monocytes % (Auto) 8.9 % (0.0-7.3); Platelet Count 131 K/mm3 (140-440); Red Blood Count 6.02 M/mm3 (3.65-5.03); Red Cell Distribution Width 16.6 % (13.2-15.2)
[2020-09-25 13:03] LABS: Alanine Aminotransferase 66 units/L (7-56); Albumin 4.7 g/dL (3.9-5); BUN/Creatinine Ratio 9; Blood Urea Nitrogen 9 mg/dL (9-20); Calcium 10.5 mg/dL (8.4-10.2); Hemolysis Index 31
[2020-09-25 14:34] LABS: Bilirubin,Urine NEG (Negative); Blood,Urine MOD (Negative); Color,Urine Amber (Yellow); Hyaline Casts,Urine 27 /LPF; Mucus,Urine 3+ /HPF
--- NOTE | 2020-09-25 15:46 | History and Physical Report ---
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 Patient reports "my head hurts, and I just feel terrible". Patient states that he has experienced nausea, multiple episodes of vomiting with blood-tinged vomitus, inability to tolerate solid or liquid diet, headache, blurred vision, and dizziness over the past 2 days with persistent symptoms of the same timeframe. Patient underwent a barium swallow today at the request of his surgeon, Dr. Nguyen. Patient transported to [facility] via private vehicle for further care and evaluation of the aforementioned symptoms. The patient was seen and evaluated in the emergency department. All lab imaging studies reviewed. The patient was found to have intractable nausea and vomiting with concomitant inability to tolerate oral intake, as well as dry oral mucosa. Patient found to have intractable nausea vomiting, volume depletion, as well as intestinal angina. Patient was treated with antiemetic therapy in the emergency department which was followed by nausea and multiple episodes of vomiting. Patient also reports severe headache. Patient placed in observation status and admitted to the medical floor. CT scan of the brain has been ordered and is pending at time of admission. Patient denies fever, chills, chest pain, palpitation, productive cough, skin rash, recent ill contacts, trauma, or known exposure to COVID-19. Prior admission on 08/18/2020 reviewed. All medication listed at time of admission has been reconciled. Past History Past Medical History: hypertension, other (See HPI) Past Surgical History: bowel surgery Social history: single. denies: smoking, alcohol abuse, prescription drug abuse Family history: diabetes, hypertension Medications and Allergies Allergies Allergy/AdvReac Type Severity Reaction Status Date / Time No Known Allergies Allergy Verified 09/03/20 10:13 Home Medications Medication Instructions Recorded Confirmed Last Taken Type Colchicine [Colcrys] 0.6 mg PO DAILY #10 tablet 01/18/17 Unknown Rx Amlodipine Besylate [Norvasc] 2.5 mg PO DAILY #30 tablet 01/13/18 Unknown Rx Apixaban [Eliquis] 10 mg PO Q12HR #60 tablet 08/20/20 Unknown Rx Metoclopramide HCl [Reglan TAB] 5 mg PO TIDAC #60 tablet 08/20/20 Unknown Rx Pantoprazole [Protonix] 40 mg PO BID #60 tablet 08/20/20 Unknown Rx Ondansetron [Zofran Odt] 4 mg PO Q8HR PRN #14 tab.rapdis 09/03/20 Unknown Rx traMADoL [Ultram 50 MG tab] 50 mg PO Q4HR PRN #14 tablet 09/03/20 Unknown Rx Review of Systems Constitutional: weight loss, no weight gain, no fever, no chills Ears, nose, mouth and throat: no ear pain, no ear discharge, no tinnitis, no decreased hearing Cardiovascular: no chest pain, no orthopnea, no rapid/irregular heart beat, no edema, no syncope, no lightheadedness Respiratory: no cough, no cough with sputum, no excessive sputum, no hemoptysis, no shortness of breath Gastrointestinal: abdominal pain, nausea, vomiting, hematemesis, no diarrhea, no coffee ground emesis, no hematochezia, no early satiety Genitourinary Male: no hematuria, no flank pain, no urinary frequency, no urinary hesitancy, no nocturia Rectal: no pain, no incontinence Musculoskeletal: no neck pain, no shooting arm pain, no shooting leg pain, no leg numbness/tingling Integumentary: no rash, no pruritis, no redness, no sores, no wounds Neurological: headaches, no head injury, no transient paralysis, no change in mentation, no confusion, no memory loss, no changes in smell/taste, no balance difficulties, no gait dysfunction, no motor disturbance, no sensory deficit Psychiatric: no anxiety, no memory loss, no change in sleep habits, no insomnia, no change in appetite, no change in libido, no suicidal ideation, no disorientation Endocrine: no cold intolerance, no heat intolerance, no polydipsia, no nocturia, no excessive sweating, no flushing Hematologic/Lymphatic: no easy bruising, no easy bleeding, no lymphadenopathy, no lymphedema Allergic/Immunologic: no urticaria, no wheezing, no persistent infections, no anaphylaxis, no angioedema Exam - Constitutional Vitals: Temp Pulse Resp BP Pulse Ox 97.9 F 51 L 18 130/95 99 09/25/20 11:19 09/25/20 11:19 09/25/20 12:43 09/25/20 11:19 09/25/20 11:19 General appearance: Present: mild distress, obese - EENT Eyes: Present: PERRL ENT: hearing intact, clear oral mucosa - Neck Neck: Present: supple, normal ROM - Respiratory Respiratory effort: normal Respiratory: bilateral: CTA - Cardiovascular Heart Sounds: Present: S1 & S2. Absent: rub, click - Extremities Extremities: pulses symmetrical, No edema Peripheral Pulses: within normal limits - Abdominal General gastrointestinal: Present: soft, non-tender, non-distended, normal bowel sounds Male genitourinary: Present: normal - Integumentary Integumentary: Present: clear, warm, dry - Musculoskeletal Musculoskeletal: gait normal, strength equal bilaterally - Psychiatric Psychiatric: appropriate mood/affect, intact judgment & insight - Neurologic Neurologic: CNII-XII intact, moves all extremities Results - Labs CBC & Chem 7: 09/25/20 12:24 09/25/20 12:24 Labs: Abnormal lab results 09/25/20 09/25/20 09/25/20 Range/Units 12:24 12:24 Unknown RBC 6.02 H (3.65-5.03) M/mm3 Hgb 16.1 H (11.8-15.2) gm/dl Hct 48.9 H (35.5-45.6) % MCV 81 L (84-94) fl MCH 27 L (28-32) pg RDW 16.6 H (13.2-15.2) % Plt Count 131 L (140-440) K/mm3 [place] % (Auto) 8.9 H (0.0-7.3) % Seg Neutrophils % 72.1 H (40.0-70.0) % Sodium 135 L (137-145) mmol/L Potassium 3.3 L (3.6-5.0) mmol/L Chloride 91.5 L (98-107) mmol/L Glucose 162 H (75-100) mg/dL Calcium 10.5 H (8.4-10.2) mg/dL ALT 66 H (7-56) units/L Total Protein 8.8 H (6.3-8.2) g/dL Lipase 101 H (13-60) units/L Urine WBC (Auto) 20.0 H (0.0-6.0) /HPF Assessment and Plan - Patient Problems (1) Intestinal angina Current Visit: Yes Status: Acute Plan to address problem: Serial abdominal exam, IV fluid resuscitation therapy, supportive care, bowel rest, liquid diet 6-8 times daily, outpatient surgery follow-up. (2) Obesity (BMI 30.0-34.9) Current Visit: Yes Status: Acute Plan to address problem: Balanced diet, increase physical activity discharge. (3) Intractable nausea and vomiting Current Visit: Yes Status: Acute Plan to address problem: Antiemetic therapy, IV fluid resuscitation therapy, bowel rest, (4) Mesenteric vein thrombosis Current Visit: No Status: Acute Plan to address problem: Therapeutic anticoagulation, supportive care. (5) Volume depletion Current Visit: Yes Status: Acute Plan to address problem: IV fluid resuscitation therapy, supportive care. (6) DVT prophylaxis Current Visit: Yes Status: Acute Plan to address problem: SCD to bilateral lower extremities while in bed, continue therapeutic anticoa gulation.
[2020-09-25] MEDS ORDERED: METOCLOPRAMIDE 10 MG/2 ML INJ IV ONE (15:48)
[2020-09-25] MEDS ORDERED: ONDANSETRON 4 MG/2 ML INJ IV PRN ×2 (15:57→19:10)
[2020-09-25] MEDS ORDERED: ACETAMINOPHEN 325 MG TAB PO PRN (15:57)
[2020-09-25] MEDS ORDERED: traMADol 50 MG TAB PO PRN (15:59)
[2020-09-25] MEDS ORDERED: SODIUM CHLORIDE 0.9% 1000 ML 1,000 ML IV SCH (16:00)
--- NOTE | 2020-09-25 17:06 | Cat Scan Report ---
CT head/brain wo con INDICATION / CLINICAL INFORMATION: 34 years Male; headache. TECHNIQUE: Routine CT head without contrast. All CT scans at this location are performed using CT dos e reduction for ALARA by means of automated exposure control. COMPARISON: None. FINDINGS: BRAIN / INTRACRANIAL CONTENTS: The brain parenchyma appears to demonstrate appropriate attenuation. T he ventricular system is within normal limits in size and configuration. There is no clear CT evidenc e of acute intracranial hemorrhage or significant mass effect ORBITS: No significant abnormality of visualized orbits. SINUSES / MASTOIDS: No significant abnormality in the visualized paranasal sinuses or mastoid air kemal ls. CRANIOCERVICAL JUNCTION: No significant abnormality. ADDITIONAL FINDINGS: None. IMPRESSION: 1. There is no CT evidence of acute intracranial process. Signer Name: Dhiraj Beckwith MD Signed: 09/25/2020 5:02 PM Workstation Name: [id number]
--- NOTE | 2020-09-25 19:11 | Consultation ---
History of Present Illness Consult date: 09/25/20 Chief complaint: Nausea and vomiting - History of present illness History of present illness: 34-year-old male who had laparoscopic gastric sleeve surgery in [place] by another surgeon about 2 months ago. He has been to the emergency room several times for intractable nausea and vomiting. On admission about a month ago patient was found to have SMV thrombosis. He was started on Eliquis. Patient was referred to see me in the office as an outpatient for follow-up. Upon evaluation about a week ago patient was given prescriptions for Reglan, Zofran and an order for an upper GI. Patient had an upper GI today that was limited due to nausea and vomiting however with the contrast that he was able to ingest, the study showed no reflux, hiatal hernia, or obstruction. Patient said that he had been feeling better for a few days after I saw him in the office, however he had just returned in town after services for his mother. Patient began having increased nausea and vomiting, headaches and fatigue. Patient was evaluated in the emergency room and was admitted for observation. Patient admits to not taking the Reglan and Zofran as prescribed, and has been not been able to take his bariatric vitamins. Patient is able to keep down some liquids and peaches. Past History Past Medical History: hypertension, other (See HPI) Past Surgical History: bowel surgery, Other (lap gastric sleeve ([place])) Social history: single. denies: smoking, alcohol abuse, prescription drug abuse Family history: diabetes, hypertension Medications and Allergies Allergies Allergy/AdvReac Type Severity Reaction Status Date / Time No Known Allergies Allergy Verified 09/03/20 10:13 Home Medications Medication Instructions Recorded Confirmed Last Taken Type Colchicine [Colcrys] 0.6 mg PO DAILY #10 tablet 01/18/17 Unknown Rx Amlodipine Besylate [Norvasc] 2.5 mg PO DAILY #30 tablet 01/13/18 Unknown Rx Apixaban [Eliquis] 10 mg PO Q12HR #60 tablet 08/20/20 Unknown Rx Metoclopramide HCl [Reglan TAB] 5 mg PO TIDAC #60 tablet 08/20/20 Unknown Rx Pantoprazole [Protonix] 40 mg PO BID #60 tablet 08/20/20 Unknown Rx Ondansetron [Zofran Odt] 4 mg PO Q8HR PRN #14 tab.rapdis 09/03/20 Unknown Rx traMADoL [Ultram 50 MG tab] 50 mg PO Q4HR PRN #14 tablet 09/03/20 Unknown Rx Active Meds: Active Medications Acetaminophen (Acetaminophen 325 Mg Tab) 650 mg PO Q4H PRN PRN Reason: Pain MILD(1-3)/Fever >100.5/ESPITIA Amlodipine Besylate (Amlodipine 5 Mg Tab) 2.5 mg PO QDAY ANNE Apixaban (Apixaban 5 Mg Tab) 5 mg PO Q12HR ANNE Colchicine (Colchicine 0.6 Mg Tab) 0.6 mg PO DAILY ANNE Sodium Chloride (Nacl 0.9% 1000 Ml) 1,000 mls @ 150 mls/hr IV DIRECT ANNE Metoclopramide HCl (Metoclopramide 10 Mg/2 Ml Inj) 10 mg IV Q6H ANNE Ondansetron HCl (Ondansetron 4 Mg/2 Ml Inj) 8 mg IV Q8H PRN PRN Reason: Nausea And Vomiting Pantoprazole Sodium (Pantoprazole 40 Mg Tab) 40 mg PO BID ANNE Sodium Chloride (Sodium Chloride 0.9% 10 Ml Flush Syringe) 10 ml IV BID ANNE Sodium Chloride (Sodium Chloride 0.9% 10 Ml Flush Syringe) 10 ml IV PRN PRN PRN Reason: LINE FLUSH Tramadol HCl (Tramadol 50 Mg Tab) 50 mg PO Q4HR PRN PRN Reason: PAIN Review of Systems All systems: negative - Gastrointestinal nausea, vomiting - Neurological headaches Exam Vital Signs Temp Pulse Resp BP Pulse Ox 97.9 F 51 L 18 130/95 99 09/25/20 11:19 09/25/20 11:19 09/25/20 11:19 09/25/20 11:19 09/25/20 11:19 - General physical appearance Positive: well developed, no distress, no pain - Respiratory Positive: normal expansion, clear to percussion - Cardiovascular Rhythm: regular - Extremities Extremities: no ischemia - Abdomen Abdomen: Present: soft. Absent: tender, guarding, rigid Results - Labs 09/25/20 12:24 09/25/20 12:24 Abnormal lab results 09/25/20 09/25/20 09/25/20 Range/Units 12:24 12:24 Unknown RBC 6.02 H (3.65-5.03) M/mm3 Hgb 16.1 H (11.8-15.2) gm/dl Hct 48.9 H (35.5-45.6) % MCV 81 L (84-94) fl MCH 27 L (28-32) pg RDW 16.6 H (13.2-15.2) % Plt Count 131 L (140-440) K/mm3 [place] % (Auto) 8.9 H (0.0-7.3) % Seg Neutrophils % 72.1 H (40.0-70.0) % Sodium 135 L (137-145) mmol/L Potassium 3.3 L (3.6-5.0) mmol/L Chloride 91.5 L (98-107) mmol/L Glucose 162 H (75-100) mg/dL Calcium 10.5 H (8.4-10.2) mg/dL ALT 66 H (7-56) units/L Total Protein 8.8 H (6.3-8.2) g/dL Lipase 101 H (13-60) units/L Urine WBC (Auto) 20.0 H (0.0-6.0) /HPF Diabetes panel 09/25/20 Range/Units 12:24 Sodium 135 L (137-145) mmol/L Potassium 3.3 L (3.6-5.0) mmol/L Chloride 91.5 L (98-107) mmol/L Carbon Dioxide 29 (22-30) mmol/L BUN 9 (9-20) mg/dL Creatinine 1.0 (0.8-1.3) mg/dL Glucose 162 H (75-100) mg/dL Calcium 10.5 H (8.4-10.2) mg/dL AST 35 (5-40) units/L ALT 66 H (7-56) units/L Alkaline Phosphatase 72 (35-129) units/L Total Protein 8.8 H (6.3-8.2) g/dL Albumin 4.7 (3.9-5) g/dL Calcium panel 09/25/20 Range/Units 12:24 Calcium 10.5 H (8.4-10.2) mg/dL Albumin 4.7 (3.9-5) g/dL Pituitary panel 09/25/20 Range/Units 12:24 Sodium 135 L (137-145) mmol/L Potassium 3.3 L (3.6-5.0) mmol/L Chloride 91.5 L (98-107) mmol/L Carbon Dioxide 29 (22-30) mmol/L BUN 9 (9-20) mg/dL Creatinine 1.0 (0.8-1.3) mg/dL Glucose 162 H (75-100) mg/dL Calcium 10.5 H (8.4-10.2) mg/dL Adrenal panel 09/25/20 Range/Units 12:24 Sodium 135 L (137-145) mmol/L Potassium 3.3 L (3.6-5.0) mmol/L Chloride 91.5 L (98-107) mmol/L Carbon Dioxide 29 (22-30) mmol/L BUN 9 (9-20) mg/dL Creatinine 1.0 (0.8-1.3) mg/dL Glucose 162 H (75-100) mg/dL Calcium 10.5 H (8.4-10.2) mg/dL Total Bilirubin 1.10 (0.1-1.2) mg/dL AST 35 (5-40) units/L ALT 66 H (7-56) units/L Alkaline Phosphatase 72 (35-129) units/L Total Protein 8.8 H (6.3-8.2) g/dL Albumin 4.7 (3.9-5) g/dL Assessment and Plan 34-year-old male status post sleeve gastrectomy at outside institution. Patient has persistent nausea and vomiting. Imaging shows no obstruction. Since early on patient may be in the adjustment phase after his procedure. Will start on IV Reglan. Continue IV hydration. Will check B1 and B12 levels. If patient is feeling better can be discharged tomorrow from surgical perspective, and follow- up as an outpatient. Patient was given instructions on getting a chewable bariatric vitamin, and to take his Reglan every 6 hours. Patient should also stay on a mainly liquid diet and add protein shakes as tolerated for nutrition.
[2020-09-25] MEDS ORDERED: NON-FORMULARY EACH (Apixaban 5 MG Tablet) PO SCH (22:00)
[2020-09-25] MEDS: APIXABAN 5 MG TAB PO SCH (22:06)
[2020-09-25] MEDS: METOCLOPRAMIDE 10 MG/2 ML INJ IV SCH (22:06)
[2020-09-25] MEDS: PANTOPRAZOLE 40 MG TAB PO SCH (22:06)
[2020-09-26] MEDS ORDERED: hydrALAZINE 20 MG/1 ML INJ ONE (01:16)
[2020-09-26] MEDS ORDERED: hydrALAZINE 20 MG/1 ML INJ IV PRN (02:48)
[2020-09-26] MEDS: METOCLOPRAMIDE 10 MG/2 ML INJ IV SCH ×2 (05:03→09:51)
[2020-09-26 05:24] VITALS: BP 139/93
[2020-09-26 06:09] LABS: BUN/Creatinine Ratio 10; Blood Urea Nitrogen 8 mg/dL (9-20); Calcium 9.4 mg/dL (8.4-10.2); Hemolysis Index 3
[2020-09-26] MEDS: PANTOPRAZOLE 40 MG TAB PO SCH (09:50)
[2020-09-26] MEDS: APIXABAN 5 MG TAB PO SCH (09:50)
[2020-09-26] MEDS ORDERED: amLODIPine 5 MG TAB PO SCH (10:00)
[2020-09-26] MEDS ORDERED: NON-FORMULARY EACH (Amlodipine Besylate [Norvasc] 2.5 MG Tablet) PO SCH (10:00)
[2020-09-26] MEDS ORDERED: COLCHICINE 0.6 MG TAB PO SCH (10:00)
--- NOTE | 2020-09-26 10:46 | Discharge Summary ---
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 Patient reports "my head hurts, and I just feel terrible". Patient states that he has experienced nausea, multiple episodes of vomiting with blood-tinged vomitus, inability to tolerate solid or liquid diet, headache, blurred vision, and dizziness over the past 2 days with persistent symptoms of the same timeframe. Patient underwent a barium swallow today at the request of his surgeon, Dr. Nguyen. Patient transported to [facility] via private vehicle for further care and evaluation of the aforementioned symptoms. The patient was seen and evaluated in the emergency department. All lab imaging studies reviewed. The patient was found to have intractable nausea and vomiting with concomitant inability to tolerate oral intake, as well as dry oral mucosa. Patient found to have intractable nausea vomiting, volume depletion, as well as intestinal angina. Patient was treated with antiemetic therapy in the emergency department which was followed by nausea and multiple episodes of vomiting. Patient also reports severe headache. Patient placed in observation status and admitted to the medical floor. CT scan of the brain has been ordered and is pending at time of admission. Patient denies fever, chills, chest pain, palpitation, productive cough, skin rash, recent ill contacts, trauma, or known exposure to COVID-19. Prior admission on 08/18/2020 reviewed. All medication listed at time of admission has been reconciled. Clarisa was seen by surgeon and noted as follows below 34-year-old male status post sleeve gastrectomy at outside institution. Patient has persistent nausea and vomiting. Imaging shows no obstruction. Since early on patient may be in the adjustment phase after his procedure. Will start on IV Reglan. Continue IV hydration. Will check B1 and B12 levels. If patient is feeling better can be discharged tomorrow from surgical perspective, and follow- up as an outpatient. (1) Acute Gastroenteritis Current Visit: Yes Status: Acute Plan to address problem: Serial abdominal exam, IV fluid resuscitation therapy, supportive care, bowel rest, liquid diet 6-8 times daily, outpatient surgery follow-up. (2) Obesity (BMI 30.0-34.9) Current Visit: Yes Status: Acute Plan to address problem: Balanced diet, increase physical activity discharge. (3) Intractable nausea and vomiting Current Visit: Yes Status: Acute Plan to address problem: Antiemetic therapy, IV fluid resuscitation therapy, bowel rest, (4) Mesenteric vein thrombosis Current Visit: No Status: Acute Plan to address problem: Therapeutic anticoagulation, supportive care. (5) Volume depletion Current Visit: Yes Status: Acute Plan to address problem: IV fluid resuscitation therapy, supportive care. Disposition: DC-01 TO HOME OR SELFCARE Final Discharge Diagnosis (Prints w/discharge instructions): ACUTE GASTROENTIRITIS Time spent for discharge: 35 MINS Core Measure Documentation - Palliative Care Palliative Care/ Comfort Measures: Not Applicable - Core Measures Any of the following diagnoses?: none Exam - Physical Exam Narrative exam: General appearance: Present: No distress, obese - EENT Eyes: Present: PERRL ENT: hearing intact, clear oral mucosa - Neck Neck: Present: supple, normal ROM - Respiratory Respiratory effort: normal Respiratory: bilateral: CTA - Cardiovascular Heart Sounds: Present: S1 & S2. Absent: rub, click - Extremities Extremities: pulses symmetrical, No edema Peripheral Pulses: within normal limits - Abdominal General gastrointestinal: Present: soft, non-tender, non-distended, normal bowel sounds Male genitourinary: Present: normal - Integumentary Integumentary: Present: clear, warm, dry - Musculoskeletal Musculoskeletal: gait normal, strength equal bilaterally - Psychiatric Psychiatric: appropriate mood/affect, intact judgment & insight - Neurologic Neurologic: CNII-XII intact, moves all extremities - Constitutional Vitals: Temp Pulse Resp BP Pulse Ox 98.6 F 107 H 20 139/93 96 09/26/20 05:22 09/26/20 05:23 09/26/20 05:22 09/26/20 05:22 09/26/20 05:23 Plan Activity: advance as tolerated, fall precautions Diet: per dietitian instruction (Patient was given instructions on getting a chewable bariatric vitamin, and to take his Reglan every 6 hours. Patient should also stay on a mainly liquid diet and add protein shakes as tolerated for nutrition.) Wound: per your surgeon's advice Special Instructions: record daily weights, record daily BP diary Plan of Treatment: Patient was given instructions on getting a chewable bariatric vitamin, and to take his Reglan every 6 hours. Patient should also stay on a mainly liquid diet and add protein shakes as tolerated for nutrition. Follow up with: PRIMARY CARE, [Primary Care Provider] - 3-5 Days CHERRIE NGUYEN MD [Staff Physician] - 7 Days RUDDY REZA MD [Staff Physician] - 7 Days Prescriptions: hydroCHLOROthiazide [Hydrochlorothiazide] 12.5 mg PO DAILY #30 capsule cephALEXin [Keflex] 500 mg PO Q12HR #6 cap Metoclopramide HCl [Reglan TAB] 5 mg PO TIDAC #60 tablet Ondansetron [Zofran ODT TAB] 4 mg PO Q8HR PRN #14 tab.rapdis PRN Reason: Nausea And Vomiting
[2020-09-26] MEDS ORDERED: POTASSIUM CHLORIDE 20 MEQ PACKET PO NR (11:00)
[2020-09-26] MEDS ORDERED: cephALEXin 500 MG CAP PO SCH (11:00)
--- NOTE | 2020-09-26 16:02 | Progress Note ---
Assessment and Plan 34-year-old male 2 months status post sleeve gastrectomy in [place]. Patient with persistent nausea and vomiting. Improved with Reglan and hydration. Okay to discharge patient to home. Patient instructed to follow-up in the office in about 2 weeks. And to take the Reglan every 6 hours and Zofran as needed for nausea. He was also instructed to stay on liquids for a while, and to stop by the office to purchase bariatric vitamins and information on protein supplements. Patient expressed understanding. Subjective Date of service: 09/26/20 Narrative: Patient says he is feeling a bit better compared to admission yesterday. Patient has been tolerating clear liquids without nausea or vomiting. Patient feels that he is ready for discharge. Objective Vital Signs - 12hr 09/26/20 09/26/20 09/26/20 05:22 05:23 11:47 Temperature 98.6 F 98.5 F Pulse Rate 104 H 107 H 94 H Respiratory 20 16 Rate Blood Pressure 139/93 139/93 O2 Sat by Pulse 100 96 98 Oximetry - General physical appearance well developed, well nourished, no distress, no pain - Respiratory normal expansion, normal respiratory effort - Abdomen soft, not tender, not distended, not guarding, not rigid - Labs 09/25/20 12:24 09/26/20 04:45 Diabetes panel 09/26/20 Range/Units 04:45 Sodium 138 (137-145) mmol/L Potassium 3.0 L (3.6-5.0) mmol/L Chloride 96.7 L (98-107) mmol/L Carbon Dioxide 29 (22-30) mmol/L BUN 8 L (9-20) mg/dL Creatinine 0.8 (0.8-1.3) mg/dL Glucose 128 H (75-100) mg/dL Calcium 9.4 (8.4-10.2) mg/dL Calcium panel 09/26/20 Range/Units 04:45 Calcium 9.4 (8.4-10.2) mg/dL Pituitary panel 09/26/20 Range/Units 04:45 Sodium 138 (137-145) mmol/L Potassium 3.0 L (3.6-5.0) mmol/L Chloride 96.7 L (98-107) mmol/L Carbon Dioxide 29 (22-30) mmol/L BUN 8 L (9-20) mg/dL Creatinine 0.8 (0.8-1.3) mg/dL Glucose 128 H (75-100) mg/dL Calcium 9.4 (8.4-10.2) mg/dL Adrenal panel 09/26/20 Range/Units 04:45 Sodium 138 (137-145) mmol/L Potassium 3.0 L (3.6-5.0) mmol/L Chloride 96.7 L (98-107) mmol/L Carbon Dioxide 29 (22-30) mmol/L BUN 8 L (9-20) mg/dL Creatinine 0.8 (0.8-1.3) mg/dL Glucose 128 H (75-100) mg/dL Calcium 9.4 (8.4-10.2) mg/dL
== END 2020-09-26 13:35 | disposition home or self-care (01) ==
LOC: ED 11:14 → 3A 15:57
PROVIDERS: ADMIT Internal Medicine; ATTEND Internal Medicine
DX: E86.9 Volume depletion, unspecified (principal); K55.1 Chronic vascular disorders of intestine; K55.059 Acute (reversible) ischemia of intestine, part and extent unspecified; K52.9 Noninfective gastroenteritis and colitis, unspecified; I10 Essential (primary) hypertension; E66.9 Obesity, unspecified; H53.8 Other visual disturbances; K21.9 Gastro-esophageal reflux disease without esophagitis; Z68.32 Body mass index [BMI] 32.0-32.9, adult; Z79.899 Other long term (current) drug therapy; Z98.890 Other specified postprocedural states
CPT/HCPCS: 36415; 70450; 71046; 74246; 80048; 80053; 81001; 82607; 83690; 84425; 85025; 86850; 86900; 86901; 87086; 96361; 96374; 96375; 96376; 99284; C9113; G0378; J2270; J2405; J2765; J7030